=== PATIENT | male | born 1930 | race Caucasian/White ===

== ENCOUNTER 2016-10-14 20:15 | Emergency (ER) | payer OTHER ==
[~2016-10-14] VITALS: Ht 175.3 cm; Wt 81.0 kg
[~2016-10-14 20:15] MED LIST: ALUMCHW6 PO; APR25 PO; IMDSR30 PO; PRLSR20 PO
[2016-10-14 20:23] VITALS: TEMP 36.7; Ht 175.3 cm; Wt 81.0 kg
[2016-10-14] MEDS ORDERED: ONDANSETRON INJ 2 MG/ML 2 ML VIAL IV STA (20:25)
[2016-10-14] MEDS ORDERED: MECLIZINE HCL 25 MG TAB PO STA (20:25)
[2016-10-14 20:37] VITALS: O2SAT 100
[2016-10-14 20:45] LABS: BASO % 0.2 %; BASO ABS # 0.02 K/uL (0-0.2); COMPLETE YES; EOS % 0.5 %; IG% 0.4 %; LYMPH % 38.1 %; LYMPH ABS # 3.94 K/uL (1.2-3.4); MEAN CELL VOLUME 89.3 fL (80-100); MEAN CORPUSCULAR HGB CONC 34.8 g/dl (32-36); MEAN PLATELET VOLUME 9.4 fL (7.4-10.4); NEUT % 54.8 %; PLATELET COUNT 323 K/uL (130-400); RED BLOOD COUNT 4.48 M/uL (4.7-6.1); WHITE BLOOD COUNT 10.35 K/uL (4.8-10.8)
[2016-10-14 20:53] LABS: PARTIAL THROMBOPLASTIN RATIO 1.1
--- NOTE | 2016-10-14 20:59 | DIAGNOSTIC IMAGING REPORT ---
CHEST ONE VIEW PORTABLE CLINICAL HISTORY: Altered mental status. Weakness. COMPARISON STUDY: 12/01/2015 FINDINGS: The heart is mildly enlarged. There is no overt failure. There are no pleural effusions. There is no lobar consolidation. There are subsegmental atelectatic changes at the left lung base.[ IMPRESSION: Mild cardiomegaly. Left basilar atelectasis. No evidence of failure. Electronically signed by: Brant Toledo M.D. 10/14/2016 8:58 PM Dictated Date/Time: 10/14/2016 8:57 PM
--- NOTE | 2016-10-14 21:16 | DIAGNOSTIC IMAGING REPORT ---
CT HEAD WITHOUT CONTRAST (CT) CLINICAL HISTORY: Altered mental status. Weakness. COMPARISON STUDY: 12/01/2015 TECHNIQUE: Axial CT of the brain is performed from the vertex to the skull base. IV contrast was not administered for this examination. CT DOSE: 773.57 mGy.cm FINDINGS: No intra or extra-axial mass lesions are visualized. There is no CT evidence of acute cortical infarction. There is no evidence of midline shift. There is no acute hemorrhage. No calvarial fractures are visualized. There are patchy white matter hypodensities likely on a small vessel basis. There is no evidence of pathologic ventricular dilatation. There is a right maxillary sinus air-fluid level. Clinical correlation in regards to acute sinusitis is recommended IMPRESSION: 1. Right maxillary sinus air-fluid level, possibly representing acute sinusitis. Otherwise no acute intracranial findings. Electronically signed by: Brant Toledo M.D. 10/14/2016 9:14 PM Dictated Date/Time: 10/14/2016 9:12 PM
[2016-10-14 21:17] LABS: ALT/SGPT 29 U/L (12-78); BLOOD UREA NITROGEN 14 mg/dl (7-18); BUN/CREATININE RATIO 12.5 (10-20); CALCIUM 9.1 mg/dl (8.5-10.1); CARBON DIOXIDE 32 mmol/L (21-32); CHLORIDE 98 mmol/L (98-107); GLUCOSE 156 mg/dl (70-99); MAGNESIUM 1.9 mg/dl (1.8-2.4); POTASSIUM 3.6 mmol/L (3.5-5.1); SODIUM 136 mmol/L (136-145)
[2016-10-14 21:26] LABS: ALKALINE PHOSPHATASE 104 U/L (45-117); AST/SGOT 29 U/L (15-37); CKMB/CK RATIO 2.6 (0-3.0)
[2016-10-14] MEDS ORDERED: AMLODIPINE BESYLATE 5 MG TAB PO ONE (21:45)
[2016-10-14 22:47] LABS: URINE APPEARANCE CLEAR (CLEAR); URINE BILIRUBIN NEG (NEG); URINE COLOR YELLOW; URINE NITRITE NEG (NEG); URINE PH 7.5 (4.5-7.5); UROBILINOGEN NEG (NEG)
[2016-10-14] MEDS ORDERED: MECL1TAB42 PO (22:59)
[2016-10-14 23:14] LABS: MANUAL MICROSCOPIC REQUIRED? NO; REVIEW REQ? NO
[2016-10-14 23:57] VITALS: BP 191/110; PULSE 85; O2SAT 93
--- NOTE | 2016-10-15 15:38 | EMERGENCY ROOM VISIT NOTE ---
History Report prepared by Calvin: Marysol Hector Under the Supervision of: Dr. Edwin Aldana D.O. First contact with patient: 20:17 Chief Complaint: HYPERTENSION Stated Complaint: HTN, Dizzy/Nausea History of Present Illness The patient is an 86 year old male who presents to the Emergency Room via EMS with complaints of persistent dizziness and nausea with onset this evening. Along with these symptoms, the patient has been hypertensive. Per EMS, the patient's grandson called as the patient had a headache. They noticed that the patient's symptoms were concerning for carbon monoxide poisoning as the patient' s grandson also had similar symptoms. The forest fire lookout read a CO reading of 20-23 pmg in the patient's house. EMS notes that the patient had intermittent PVCs and that he vomited en route to the hospital. The patient denies current headache. The patient remains nauseous. The patient notes that he has a history of vertigo and tinnitus. He states that he took his medications today. Source of History: patient Onset: this evening Position: other (global ) Quality: other (nausea, dizziness) Timing: other (persistent) Associated Symptoms: + headache, + nausea, + vomiting Review of Systems See HPI for pertinent positives & negatives. A total of 10 systems reviewed and were otherwise negative. Past Medical & Surgical Medical Problems: (1) Diabetes mellitus type 2 in nonobese (2) Dyslipidemia (3) GERD (gastroesophageal reflux disease) (4) Hearing loss (5) Hypertension Surgical Problems: (1) No significant past surgical history Family History Hypertension Kidney disease Kidney stones Social History Smoking Status: Never Smoker Alcohol Use: none Drug Use: none Housing Status: lives alone Occupation Status: retired Current/Historical Medications Scheduled Amlodipine Besylate (Norvasc), 10 MG PO DAILY Atenolol (Tenormin), 100 MG PO DAILY Atorvastatin (Lipitor), 20 MG PO DAILY Calcium/Vitamin D ([place] 500 Plus D), 1 TAB PO DAILY Hydralazine Hcl (Apresoline), 25 MG PO BID Isosorbide Mononitrate (Isosorbide Mononitrate ER), 30 MG PO QAM Omeprazole (Prilosec), 20 MG PO DAILY Scheduled PRN Aluminum Hydroxide-Mag Carb (Gaviscon Extra Strength), 2 TAB PO TID PRN for Dyspepsia Meclizine Hcl (Meclizine Hcl), 25 MG PO TID PRN for Dizziness Meclizine Hcl (Meclizine Hcl), 1 TAB PO TID PRN for Dizziness or Vertigo Allergies Coded Allergies: Penicillins (Verified Allergy, Unknown, unknown, 10/14/16) Physical Exam Vital Signs Date Time Temp Pulse Resp B/P Pulse Ox O2 Delivery O2 Flow Rate FiO2 10/14/16 23:57 85 18 191/110 93 Room Air 10/14/16 23:35 91 18 186/98 98 Room Air 10/14/16 22:45 87 18 95 Room Air 10/14/16 21:22 78 18 219/106 100 Non-Rebreather 15.0 10/14/16 21:01 85 20 221/99 100 Non-Rebreather 15.0 10/14/16 20:45 78 18 190/94 100 Non-Rebreather 15.0 80 211/99 87 202/94 10/14/16 20:37 100 Non-Rebreather 15.0 10/14/16 20:31 77 10/14/16 20:23 36.7 83 18 218/97 99 Room Air 10/14/16 20:23 99 Room Air Physical Exam GENERAL: Patient is awake alert in no acute distress patient is resting comfortably and showing no signs of anxiety EYES: The conjunctivae are clear. The pupils are round and reactive. EARS, NOSE, MOUTH AND THROAT: The nose is without any evidence of any deformity. Mucous membranes are moist tongue is midline NECK: The neck is nontender and supple. RESPIRATORY: Normal respiratory effort is noted there is no evidence of wheezing rhonchi or rales CARDIOVASCULAR: Regular rate and rhythm noted there no murmurs rubs or gallops normal S1 normal S2 GASTROINTESTINAL: The abdomen is soft. Bowel sounds are present in all quadrants. Abdomen is nontender MUSCULOSKELETAL/EXTREMITIES: There is no evidence of gross deformity full range of motion is noted in the hips and shoulders SKIN: There is no obvious evidence of any rash. There are no petechiae, pallor or cyanosis noted. NEUROLOGIC: Patient is awake alert and oriented x3 strength is symmetric, no drift, no facial droop was noted, no nystagmus was noted. Medical Decision & Procedures ER Provider Diagnostic Interpretation: CT results as stated below per my review and radiologist interpretation. CT HEAD WITHOUT CONTRAST (CT) CLINICAL HISTORY: Altered mental status. Weakness. COMPARISON STUDY: 12/01/2015 TECHNIQUE: Axial CT of the brain is performed from the vertex to the skull base. IV contrast was not administered for this examination. CT DOSE: 773.57 mGy.cm FINDINGS: No intra or extra-axial mass lesions are visualized. There is no CT evidence of acute cortical infarction. There is no evidence of midline shift. There is no acute hemorrhage. No calvarial fractures are visualized. There are patchy white matter hypodensities likely on a small vessel basis. There is no evidence of pathologic ventricular dilatation. There is a right maxillary sinus air-fluid level. Clinical correlation in regards to acute sinusitis is recommended IMPRESSION: 1. Right maxillary sinus air-fluid level, possibly representing acute sinusitis. Otherwise no acute intracranial findings. Electronically signed by: Brant Toledo M.D. 10/14/2016 9:14 PM Dictated Date/Time: 10/14/2016 9:12 PM CHEST ONE VIEW PORTABLE CLINICAL HISTORY: Altered mental status. Weakness. COMPARISON STUDY: 12/01/2015 FINDINGS: The heart is mildly enlarged. There is no overt failure. There are no pleural effusions. There is no lobar consolidation. There are subsegmental atelectatic changes at the left lung base.[ IMPRESSION: Mild cardiomegaly. Left basilar atelectasis. No evidence of failure. Electronically signed by: Brant Toledo M.D. 10/14/2016 8:58 PM Dictated Date/Time: 10/14/2016 8:57 PM Laboratory Results 10/14/16 20:00 Red Blood Count 4.48, Mean Corpuscular Volume 89.3, Mean Corpuscular Hemoglobin 31.0, Mean Corpuscular Hemoglobin Concent 34.8, Mean Platelet Volume 9.4, Neutrophils (%) (Auto) 54.8, Lymphocytes (%) (Auto) 38.1, Monocytes (%) (Auto) 6.0, Eosinophils (%) (Auto) 0.5, Basophils (%) (Auto) 0.2, Neutrophils # (Auto) 5.68, Lymphocytes # (Auto) 3.94, Monocytes # (Auto) 0.62, Eosinophils # (Auto) 0.05, Basophils # (Auto) 0.02 10/14/16 20:00 Test 10/14/16 20:00 2/25/17 20:33 10/14/16 20:41 10/14/16 22:00 White Blood Count 10.35 K/uL (4.8-10.8) Red Blood Count 4.48 M/uL (4.7-6.1) Hemoglobin 13.9 g/dL (14.0-18.0) Hematocrit 40.0 % (42-52) Mean Corpuscular Volume 89.3 fL (80-100) Mean Corpuscular Hemoglobin 31.0 pg (25-34) Mean Corpuscular Hemoglobin Concent 34.8 g/dl (32-36) Platelet Count 323 K/uL (130-400) Mean Platelet Volume 9.4 fL (7.4-10.4) Neutrophils (%) (Auto) 54.8 % Lymphocytes (%) (Auto) 38.1 % Monocytes (%) (Auto) 6.0 % Eosinophils (%) (Auto) 0.5 % Basophils (%) (Auto) 0.2 % Neutrophils # (Auto) 5.68 K/uL (1.4-6.5) Lymphocytes # (Auto) 3.94 K/uL (1.2-3.4) Monocytes # (Auto) 0.62 K/uL (0.11-0.59) Eosinophils # (Auto) 0.05 K/uL (0-0.5) Basophils # (Auto) 0.02 K/uL (0-0.2) RDW Standard Deviation 46.9 fL (36.4-46.3) RDW Coefficient of Variation 14.3 % (11.5-14.5) Immature Granulocyte % (Auto) 0.4 % Immature Granulocyte # (Auto) 0.04 K/uL (0.00-0.02) Prothrombin Time 11.0 SECONDS (9.0-12.0) Prothromb Time International Ratio 1.0 (0.9-1.1) Activated Partial Thromboplast Time 29.1 SECONDS (21.0-31.0) Partial Thromboplastin Ratio 1.1 Anion Gap 6.0 mmol/L (3-11) Est Creatinine Clear Calc Drug Dose 48.2 ml/min Estimated GFR () 70.1 Estimated GFR (Non- 60.5 BUN/Creatinine Ratio 12.5 (10-20) Calcium Level 9.1 mg/dl (8.5-10.1) Magnesium Level 1.9 mg/dl (1.8-2.4) Total Bilirubin 0.4 mg/dl (0.2-1) Direct Bilirubin 0.1 mg/dl (0-0.2) Aspartate Amino Transf (AST/SGOT) 29 U/L (15-37) Alanine Aminotransferase (ALT/SGPT) 29 U/L (12-78) Alkaline Phosphatase 104 U/L (45-117) Total Creatine Kinase 62 U/L (39-308) Creatine Kinase MB 1.6 ng/ml (0.5-3.6) Creatine Kinase MB Ratio 2.6 (0-3.0) Troponin I < 0.015 ng/ml (0-0.045) Total Protein 8.1 gm/dl (6.4-8.2) Albumin 4.0 gm/dl (3.4-5.0) Lipase 156 U/L (73-393) Thyroid Stimulating Hormone (TSH) 3.340 uIu/ml (0.300-4.500) Bedside Glucose 165 mg/dl (70-99) Carboxyhemoglobin 0.0 % THgb Urine Color YELLOW Urine Appearance CLEAR (CLEAR) Urine pH 7.5 (4.5-7.5) Urine Specific [place] 1.010 (1.000-1.030) Urine Protein NEG (NEG) Urine Glucose (UA) TRACE (NEG) Urine Ketones NEG (NEG) Urine Occult Blood NEG (NEG) Urine Nitrite NEG (NEG) Urine Bilirubin NEG (NEG) Urine Urobilinogen NEG (NEG) Urine Leukocyte Esterase NEG (NEG) Laboratory results per my review. Medications Administered Medications (Trade) Dose Ordered Sig/Florentin Route Start Time Stop Time Status Last Admin Dose Admin Ondansetron HCl (Zofran Inj) 4 mg NOW STAT IV 10/14/16 20:25 10/14/16 20:28 DC 10/14/16 20:35 4 MG Meclizine HCl (Antivert Tab) 25 mg NOW STAT PO 10/14/16 20:25 10/14/16 20:28 DC 10/14/16 20:35 25 MG Hydralazine HCl (Apresoline Tab) 25 mg NOW STAT PO 10/14/16 20:28 10/14/16 20:29 DC 10/14/16 20:35 25 MG Amlodipine Besylate (Norvasc Tab) 10 mg NOW ONCE PO 10/14/16 21:45 10/14/16 21:46 DC 10/14/16 21:43 10 MG ECG Indication: nausea Rate (beats per minute): 80 Rhythm: sinus rhythm Findings: 1st degree AV block, no ectopy, other (no acute ST segment abnormalities ) Comparison ECG Date: December 01, 2015 Change: no significant change ED Course 2019: The patient was evaluated in room A10. A complete history and physical examination were performed. 2024: Antivert Tab 25 mg PO, Zofran 4 mg IV 2027: Hydralazine HCl 25 mg PO 2131: I reevaluated the patient; he is feeling better. 2144: Norvasc Tab 10 mg PO 2254: Upon reevaluation, the patient is doing well. I discussed the results and treatment plan with the patient. He verbalized agreement of the treatment plan. The patient was discharged home. Medical Decision Differential diagnosis: Etiologies such as benign positional vertigo, dehydration, hypovolemia, anemia, tumor, infection, hypoglycemia, electrolyte abnormalities, cardiac sources, intracerebral event, toxicologic, neurologic, as well as others were entertained. Nursing notes reviewed. Additional history is obtained from the patient's family members. The patient is an 86-year-old male who presented to the emergency department for an evaluation of vertigo. The patient also had hypertension. He has a history of chronic hypertension and from his description I do not feel that he is being compliant with his medications. I reviewed the patient's medication regimen with him as well as his family members. He was treated with meclizine as well as his blood pressure medication while he was in the emergency department. He continued to have elevated blood pressure readings in the emergency department. Some of the documented blood pressures I do not feel are correct I feel they are spurious because they are not consistent with the patient's pattern but I discussed this with the nursing staff and they included them in the documentation. They were reviewed. The patient was encouraged to review his medications with his doctor as well as his family. I gave his son a printout of his current blood pressure medication. They were encouraged to ensure that he is taking all his medications as prescribed and rest. He was encouraged to follow-up with his family doctor as soon as possible for reevaluation and for blood pressure check. He was also encouraged to return to the emergency department for further evaluation but return immediately if symptoms change worsen or the need arises. Impression Primary Impression: Vertigo Additional Impressions: Hypertension Noncompliance with medications Scribe Attestation The scribe's documentation has been prepared under my direction and personally reviewed by me in its entirety. I confirm that the note above accurately reflects all work, treatment, procedures, and medical decision making performed by me. Departure Information Dispostion Home / Self-Care Prescriptions Meclizine Hcl (MECLIZINE HCL) 25 Mg Tab 1 TAB PO TID Y for Dizziness or Vertigo for 10 Days, #30 TAB Prov: Edwin Aldana, DO 10/14/16 Referrals Asael Damian MD (PCP) Forms HOME CARE DOCUMENTATION FORM, IMPORTANT VISIT INFORMATION, WORK / SCHOOL INSTRUCTIONS Patient Instructions ED Vertigo Unspecified, Hypertension Control, My [facility] Additional Instructions Continue all medications as prescribed. Rest and avoid any strenuous activity. Follow-up with your family as soon as possible for reevaluation. Recheck your blood pressure with your family this week. Problem Qualifiers Additional Impressions: Hypertension Hypertension type: essential hypertension Qualified Codes: I10 - Essential ( primary) hypertension
[2017-01-30] MEDS ORDERED: GLC/500 PO (10:16)
[2017-01-30] MEDS ORDERED: ATEN-175 PO (13:28)
[2017-01-30] MEDS ORDERED: AMLO10TA2 PO (13:28)
[2017-01-30] MEDS ORDERED: ATOR-22 PO (13:28)
[2017-01-30] MEDS ORDERED: MECL1TAB42 PO (17:21)
== END 2016-10-15 | disposition home or self-care (01) ==
LOC: EDBD 20:15 → C.EDA 20:16
DX: R42 Dizziness and giddiness (principal); I10 Essential (primary) hypertension; Z91.19 Patient's noncompliance with other medical treatment and regimen; E11.9 Type 2 diabetes mellitus without complications; E78.5 Hyperlipidemia, unspecified; K21.9 Gastro-esophageal reflux disease without esophagitis

== ENCOUNTER 2016-12-12 08:41 | Emergency (ER) | payer OTHER ==
[~2016-12-12] VITALS: Ht 177.8 cm; Wt 81.9 kg
[2016-12-12 08:50] VITALS: TEMP 36.8; Ht 177.8 cm; Wt 81.9 kg
[2016-12-12] MEDS ORDERED: SODIUM CHLORIDE 0.9% 500ML 500 ML IV STA (09:01)
[2016-12-12] MEDS ORDERED: MECLIZINE HCL 25 MG TAB PO STA (09:01)
[2016-12-12] MEDS ORDERED: ONDANSETRON INJ 2 MG/ML 2 ML VIAL IV STA (09:01)
[2016-12-12] MEDS ORDERED: DIAZEPAM INJ 5 MG/ML 2 ML CARP IV STA (09:01)
[2016-12-12 09:21] VITALS: O2SAT 93
--- NOTE | 2016-12-12 09:35 | EMERGENCY ROOM VISIT NOTE ---
History Report prepared by Calvin: La Rodriguez Under the Supervision of: Dr. Georgi Banegas M.D. First contact with patient: 08:56 Chief Complaint: VERTIGO Stated Complaint: VERTIGO History of Present Illness The patient is an 86 year old male who presents to the Emergency Room with complaints of persistent dizziness that began prior to arrival. Per nursing staff, the patient has a history of vertigo. They note that the patient became dizzy this morning and crawled to the bathroom because he could not walk. Nursing staff reports that the patient vomited twice and has not had his morning medications due to the nausea. Nursing staff reports that the patient lives at home. Source of History: patient, nursing staff Onset: prior to arrival Position: other (global) Quality: other (dizziness) Timing: other (persistent) Associated Symptoms: + nausea, + vomiting Note: Associated Symptoms: could not walk Review of Systems See HPI for pertinent positives & negatives. A total of 10 systems reviewed and were otherwise negative. Past Medical & Surgical Medical Problems: (1) Diabetes mellitus type 2 in nonobese (2) Dyslipidemia (3) GERD (gastroesophageal reflux disease) (4) Hearing loss (5) Hypertension Surgical Problems: (1) No significant past surgical history Family History Hypertension Kidney disease Kidney stones Social History Smoking Status: Former Smoker Alcohol Use: none Drug Use: none Housing Status: lives alone Occupation Status: retired Current/Historical Medications Scheduled Amlodipine Besylate (Norvasc), 10 MG PO DAILY Atenolol (Tenormin), 100 MG PO DAILY Atorvastatin (Lipitor), 20 MG PO DAILY Calcium/Vitamin D ([place] 500 Plus D), 1 TAB PO DAILY Hydralazine Hcl (Apresoline), 25 MG PO BID Isosorbide Mononitrate (Isosorbide Mononitrate ER), 30 MG PO QAM Metformin Hcl (Glucophage), 500 MG PO BIDM Metformin Hcl (Glucophage), 1 TAB PO BID Omeprazole (Prilosec), 20 MG PO DAILY Omeprazole (Omeprazole), 1 TAB PO DAILY Scheduled PRN Aluminum Hydroxide-Mag Carb (Gaviscon Extra Strength), 2 TAB PO TID PRN for Dyspepsia Meclizine Hcl (Meclizine Hcl), 25 MG PO TID PRN for Dizziness Meclizine Hcl (Meclizine Hcl), 1 TAB PO TID PRN for Dizziness or Vertigo Allergies Coded Allergies: Penicillins (Verified Allergy, Unknown, unknown, 12/12/16) Physical Exam Vital Signs Date Time Temp Pulse Resp B/P Pulse Ox O2 Delivery O2 Flow Rate FiO2 12/12/16 10:46 75 15 95 12/12/16 10:31 137/63 12/12/16 10:27 125/97 12/12/16 10:16 74 15 92 12/12/16 10:11 74 18 93 12/12/16 10:00 125/97 12/12/16 09:55 175/81 12/12/16 09:53 192/93 12/12/16 09:52 180/94 12/12/16 09:51 80 180/94 84 192/93 85 175/81 12/12/16 09:21 93 Room Air 12/12/16 09:21 93 Room Air 12/12/16 09:11 76 18 95 12/12/16 09:00 166/77 12/12/16 08:58 80 12/12/16 08:50 36.8 78 18 182/84 95 Room Air 12/12/16 08:46 182/84 Physical Exam GENERAL: Patient is hard of hearing, healthy-appearing well-nourished HEAD: Normocephalic atraumatic EYES: Ocular movements intact pupils equal and react to light OROPHARYNX mucous membranes are moist no exudates present no erythema or edema present NECK: Supple no nuchal rigidity CHEST: Good equal expansion LUNGS: Clear and equal to auscultation CARDIAC: Normal S1 and S2 ABDOMEN: Soft nontender no guarding BACK: No CVA tenderness EXTREMITIES: No pain upon palpation normal muscle strength in all groups no clubbing cyanosis or edema NEURO: Patient is following commands is answering questions appropriately. Alert and oriented x3 Cranial Nerves 2-12 grossly intact Medical Decision & Procedures ER Provider Diagnostic Interpretation: CT results as stated below per my review and radiologist interpretation: HEAD CT NONCONTRAST CT DOSE: 537.48 mGy.cm HISTORY: Altered mental status. TECHNIQUE: Multiaxial CT images of the head were performed without the use of intravenous contrast. Automated exposure control was utilized for this study. Comparison: Head CT 10/14/2016. Findings: The paranasal sinuses and mastoid air cells are clear. The calvarium and skull base are intact. There is no mass, hematoma, midline shift, acute infarct. White matter hypodensity is nonspecific but suggestive of microvascular ischemic change. The ventricles and sulci demonstrate mild age-related involutional changes. Impression: No acute intracranial abnormality. Atrophy and microvascular ischemic changes. Electronically signed by: Ken Villela M.D. 12/12/2016 9:50 AM Dictated Date/Time: 12/12/2016 9:[address] SCAN OF THE ABDOMEN AND PELVIS WITHOUT IV CONTRAST CLINICAL HISTORY: Emesis. COMPARISON STUDY: Abdominal CT dated 11/21/2015. TECHNIQUE: CT scan of the abdomen and pelvis is performed from the lung bases to the proximal femora. Images are reviewed in the axial, sagittal, and coronal planes. IV contrast was not administered for this examination as per the referring clinician. Note that the examination was performed in significantly suboptimal fashion without oral and IV contrast. The examination is also degraded by motion artifact as well as streak artifact from the arms which could not be elevated above the abdomen. Automated dose control exposure was utilized. CT DOSE: 792.09 mGy.cm FINDINGS: Lung bases: The heart is enlarged and without pericardial effusion. The lung bases are clear. There is a tiny hiatal hernia. Liver: Evaluation of the liver is degraded by streak artifact. The unenhanced liver appears normal in size, contour, and attenuation. There is no intrahepatic biliary ductal dilatation. Gallbladder: Unremarkable. Spleen: Normal in size and attenuation. Pancreas: The unenhanced pancreas is moderately atrophic and grossly unremarkable. Adrenal glands: Unremarkable. Kidneys: The unenhanced kidneys are atrophic and without hydronephrosis. There are no renal calculi identified. There is no evidence of contour deforming renal mass lesion. Abdominal vasculature: The abdominal aorta is normal in course and caliber noting moderate to advanced atherosclerotic calcification. Bowel: The small bowel and colon are normal in course and caliber. There is moderate sigmoid diverticulosis without CT evidence of acute diverticulitis. The appendix is well-visualized and normal. Peritoneum: There is no intraperitoneal free air or abdominal ascites. Lymphadenopathy: None. Pelvic viscera: The prostate gland is diminutive and heterogeneous. The bladder is distended and the wall appears trabeculated suggesting chronic outlet obstruction. Skeletal structures: The skeletal structures are osteopenic. There is moderate to advanced lumbosacral spondylosis. No lytic or blastic lesions are seen. IMPRESSION: 1. Significantly suboptimal examination without oral and IV contrast. The examination is also degraded by streak and motion artifact. 2. There are no acute infectious or inflammatory findings in the abdomen or pelvis. 3. Cardiomegaly. 4. Moderate sigmoid diverticulosis without CT evidence of acute diverticulosis. 5. Additional findings as above. Electronically signed by: Esvin Heath M.D. 12/12/2016 9:59 AM Dictated Date/Time: 12/12/2016 9:53 AM Laboratory Results 12/12/16 09:21 Red Blood Count 4.38, Mean Corpuscular Volume 91.3, Mean Corpuscular Hemoglobin 30.6, Mean Corpuscular Hemoglobin Concent 33.5, Mean Platelet Volume 9.4, Neutrophils (%) (Auto) 82.3, Lymphocytes (%) (Auto) 12.3, Monocytes (%) (Auto) 4.6, Eosinophils (%) (Auto) 0.2, Basophils (%) (Auto) 0.3, Neutrophils # (Auto) 9.44, Lymphocytes # (Auto) 1.41, Monocytes # (Auto) 0.53, Eosinophils # (Auto) 0.02, Basophils # (Auto) 0.03 12/12/16 09:21 Test 12/12/16 09:00 12/12/16 09:21 12/12/16 09:29 12/12/16 10:00 Bedside Glucose 203 mg/dl (70-99) White Blood Count 11.47 K/uL (4.8-10.8) Red Blood Count 4.38 M/uL (4.7-6.1) Hemoglobin 13.4 g/dL (14.0-18.0) Hematocrit 40.0 % (42-52) Mean Corpuscular Volume 91.3 fL (80-100) Mean Corpuscular Hemoglobin 30.6 pg (25-34) Mean Corpuscular Hemoglobin Concent 33.5 g/dl (32-36) Platelet Count 242 K/uL (130-400) Mean Platelet Volume 9.4 fL (7.4-10.4) Neutrophils (%) (Auto) 82.3 % Lymphocytes (%) (Auto) 12.3 % Monocytes (%) (Auto) 4.6 % Eosinophils (%) (Auto) 0.2 % Basophils (%) (Auto) 0.3 % Neutrophils # (Auto) 9.44 K/uL (1.4-6.5) Lymphocytes # (Auto) 1.41 K/uL (1.2-3.4) Monocytes # (Auto) 0.53 K/uL (0.11-0.59) Eosinophils # (Auto) 0.02 K/uL (0-0.5) Basophils # (Auto) 0.03 K/uL (0-0.2) RDW Standard Deviation 48.0 fL (36.4-46.3) RDW Coefficient of Variation 14.5 % (11.5-14.5) Immature Granulocyte % (Auto) 0.3 % Immature Granulocyte # (Auto) 0.04 K/uL (0.00-0.02) Est Creatinine Clear Calc Drug Dose 45.6 ml/min Estimated GFR () 63.1 Estimated GFR (Non- 54.4 BUN/Creatinine Ratio 10.4 (10-20) Calcium Level 9.3 mg/dl (8.5-10.1) Total Bilirubin 0.5 mg/dl (0.2-1) Direct Bilirubin 0.1 mg/dl (0-0.2) Aspartate Amino Transf (AST/SGOT) 19 U/L (15-37) Alanine Aminotransferase (ALT/SGPT) 29 U/L (12-78) Alkaline Phosphatase 93 U/L (45-117) Total Creatine Kinase 61 U/L (39-308) Creatine Kinase MB 1.0 ng/ml (0.5-3.6) Creatine Kinase MB Ratio 1.6 (0-3.0) Troponin I < 0.015 ng/ml (0-0.045) Total Protein 8.1 gm/dl (6.4-8.2) Albumin 4.0 gm/dl (3.4-5.0) Thyroid Stimulating Hormone (TSH) 3.400 uIu/ml (0.300-4.500) Bedside Hemoglobin 14.3 g/dl (14.0-18.0) Bedside Hematocrit 42 % (42-52) Bedside Sodium 140 mEq/L (135-144) Bedside Potassium 4.5 mEq/L (3.3-5.0) Bedside Chloride 100 mEq/L (101-112) Bedside Total CO2 28 mEq/l (24-31) Anion Gap 18.0 mmol/L (16-25) Bedside Blood Urea Nitrogen 16 mg/dl (7-18) Bedside Creatinine 1.0 mg/dl (0.6-1.3) Bedside Glucose (other) 220 mg/dl (70-99) Bedside Ionized Calcium ([place]) 1.12 mmol/l (1.12-1.32) Urine Color YELLOW Urine Appearance CLEAR (CLEAR) Urine pH 8.5 (4.5-7.5) Urine Specific [place] 1.012 (1.000-1.030) Urine Protein NEG (NEG) Urine Glucose (UA) 2+ (NEG) Urine Ketones NEG (NEG) Urine Occult Blood NEG (NEG) Urine Nitrite NEG (NEG) Urine Bilirubin NEG (NEG) Urine Urobilinogen NEG (NEG) Urine Leukocyte Esterase NEG (NEG) Labs reviewed by ED physician. Medications Administered Medications (Trade) Dose Ordered Sig/Florentin Route Start Time Stop Time Status Last Admin Dose Admin Diazepam (Valium Inj) 2.5 mg NOW STAT IV 12/12/16 09:01 12/12/16 09:04 DC 12/12/16 10:06 2.5 MG Ondansetron HCl (Zofran Inj) 4 mg NOW STAT IV 12/12/16 09:01 12/12/16 09:04 DC 12/12/16 10:05 4 MG Meclizine HCl 25 mg 25 mg NOW STAT PO 12/12/16 09:01 12/12/16 09:05 DC 12/12/16 10:04 25 MG Sodium Chloride (Nss 500ml) 500 ml @ 999 mls/hr Q31M STAT IV 12/12/16 09:01 12/12/16 09:31 DC 12/12/16 10:04 999 MLS/HR ECG Indication: other (dizziness) Rate (beats per minute): 75 Rhythm: normal sinus Findings: 1st degree AV block, no acute ischemic change, no ectopy ED Course 0856: Past medical records reviewed. The patient was evaluated in room B11B. A complete history and physical examination was performed. 0901: Ordered Sodium Chloride 500 ml @ 999 mls/hr IV, Antivert Tab 25 mg PO, Zofran Inj 4 mg IV, Valium Inj 2.5 mg IV. 1044: I reevaluated the patient and he is resting comfortably. I discussed the exam findings with him and I discussed the treatment plan. He verbalized complete understanding and agreement. He is going to have an ambulation trial. 1058: According to nursing staff, the patients ambulation trial went well. He is ready to go home. Medical Decision Differential diagnosis: Etiologies such as metabolic, infection, hypo/hyperglycemia, electrolyte abnormalities, cardiac sources, intracerebral event, toxicologic, neurologic, as well as others were entertained. This is an 86-year-old male who presents emergency department because he is out of his meclizine medication. The patient has a history of vertigo and reports he is currently having vertigo. He was sent for CAT scan of the head however this did not show any acute process. He was given Valium as well as meclizine here in the emergency department. Repeat examination revealed improvement in the patient's symptoms. He was ambulated by nursing staff both to the bathroom as well as around the emergency department without any distress. I feel the patient is well enough to be discharged home. He was given refills on his current medications however stressed the need for follow-up with his primary care physician. Patient and family were in agreement with the treatment plan. Impression Primary Impression: Vertigo Scribe Attestation The scribe's documentation has been prepared under my direction and personally reviewed by me in its entirety. I confirm that the note above accurately reflects all work, treatment, procedures, and medical decision making performed by me. Departure Information Dispostion Home / Self-Care Prescriptions Meclizine Hcl (MECLIZINE HCL) 25 Mg Tab 1 TAB PO TID Y for Dizziness or Vertigo for 10 Days, #30 TAB Prov: Georgi Banegas MD 12/12/16 Omeprazole (OMEPRAZOLE) 20 Mg Tab 1 TAB PO DAILY for 10 Days, #10 TAB 1 Refill Prov: Georgi Banegas MD 12/12/16 Metformin Hcl (GLUCOPHAGE) 500 Mg Tab 1 TAB PO BID for 10 Days, #20 TAB 1 Refill Prov: Georgi Banegas MD 12/12/16 Referrals Asael Damian MD (PCP) Forms HOME CARE DOCUMENTATION FORM, IMPORTANT VISIT INFORMATION, WORK / SCHOOL INSTRUCTIONS Patient Instructions ED Vertigo Unspecified, My [facility] Additional Instructions You have been examined and treated today on an emergency basis only. This is not a substitute for, or an effort to provide, complete comprehensive medical care. It is impossible to recognize and treat all injuries or illnesses in a single emergency department visit. It is therefore important that you follow up closely with Dr Damian. Call as soon as possible for an appointment. Thank you for your time and consideration. I look forward to speaking with you again soon. Please don't hesitate to call us if you have any questions.
[2016-12-12 09:43] LABS: BASO % 0.3 %; BASO ABS # 0.03 K/uL (0-0.2); COMPLETE YES; EOS % 0.2 %; IG% 0.3 %; LYMPH % 12.3 %; LYMPH ABS # 1.41 K/uL (1.2-3.4); MEAN CELL VOLUME 91.3 fL (80-100); MEAN CORPUSCULAR HEMOGLOBIN 30.6 pg (25-34); MEAN CORPUSCULAR HGB CONC 33.5 g/dl (32-36); MEAN PLATELET VOLUME 9.4 fL (7.4-10.4); MONO % 4.6 %; NEUT % 82.3 %; PLATELET COUNT 242 K/uL (130-400); RED BLOOD COUNT 4.38 M/uL (4.7-6.1); WHITE BLOOD COUNT 11.47 K/uL (4.8-10.8)
[2016-12-12 09:47] LABS: ISTAT HEMOGLOBIN 14.3 g/dl (14.0-18.0); ISTAT IONIZED CALCIUM 1.12 mmol/l (1.12-1.32)
--- NOTE | 2016-12-12 09:52 | DIAGNOSTIC IMAGING REPORT ---
HEAD CT NONCONTRAST CT DOSE: 537.48 mGy.cm HISTORY: Altered mental status. TECHNIQUE: Multiaxial CT images of the head were performed without the use of intravenous contrast. Automated exposure control was utilized for this study. Comparison: Head CT 10/14/2016. Findings: The paranasal sinuses and mastoid air cells are clear. The calvarium and skull base are intact. There is no mass, hematoma, midline shift, acute infarct. White matter hypodensity is nonspecific but suggestive of microvascular ischemic change. The ventricles and sulci demonstrate mild age-related involutional changes. Impression: No acute intracranial abnormality. Atrophy and microvascular ischemic changes. Electronically signed by: Ken Villela M.D. 12/12/2016 9:50 AM Dictated Date/Time: 12/12/2016 9:47 AM
[2016-12-12 10:01] LABS: CALCIUM 9.3 mg/dl (8.5-10.1)
--- NOTE | 2016-12-12 10:01 | DIAGNOSTIC IMAGING REPORT ---
CT SCAN OF THE ABDOMEN AND PELVIS WITHOUT IV CONTRAST CLINICAL HISTORY: Emesis. COMPARISON STUDY: Abdominal CT dated 11/21/2015. TECHNIQUE: CT scan of the abdomen and pelvis is performed from the lung bases to the proximal femora. Images are reviewed in the axial, sagittal, and coronal planes. IV contrast was not administered for this examination as per the referring clinician. Note that the examination was performed in significantly suboptimal fashion without oral and IV contrast. The examination is also degraded by motion artifact as well as streak artifact from the arms which could not be elevated above the abdomen. Automated dose control exposure was utilized. CT DOSE: 792.09 mGy.cm FINDINGS: Lung bases: The heart is enlarged and without pericardial effusion. The lung bases are clear. There is a tiny hiatal hernia. Liver: Evaluation of the liver is degraded by streak artifact. The unenhanced liver appears normal in size, contour, and attenuation. There is no intrahepatic biliary ductal dilatation. Gallbladder: Unremarkable. Spleen: Normal in size and attenuation. Pancreas: The unenhanced pancreas is moderately atrophic and grossly unremarkable. Adrenal glands: Unremarkable. Kidneys: The unenhanced kidneys are atrophic and without hydronephrosis. There are no renal calculi identified. There is no evidence of contour deforming renal mass lesion. Abdominal vasculature: The abdominal aorta is normal in course and caliber noting moderate to advanced atherosclerotic calcification. Bowel: The small bowel and colon are normal in course and caliber. There is moderate sigmoid diverticulosis without CT evidence of acute diverticulitis. The appendix is well-visualized and normal. Peritoneum: There is no intraperitoneal free air or abdominal ascites. Lymphadenopathy: None. Pelvic viscera: The prostate gland is diminutive and heterogeneous. The bladder is distended and the wall appears trabeculated suggesting chronic outlet obstruction. Skeletal structures: The skeletal structures are osteopenic. There is moderate to advanced lumbosacral spondylosis. No lytic or blastic lesions are seen. IMPRESSION: 1. Significantly suboptimal examination without oral and IV contrast. The examination is also degraded by streak and motion artifact. 2. There are no acute infectious or inflammatory findings in the abdomen or pelvis. 3. Cardiomegaly. 4. Moderate sigmoid diverticulosis without CT evidence of acute diverticulosis. 5. Additional findings as above. Electronically signed by: Esvin Heath M.D. 12/12/2016 9:59 AM Dictated Date/Time: 12/12/2016 9:53 AM
[2016-12-12 10:04] LABS: BLOOD UREA NITROGEN 13 mg/dl (7-18); BUN/CREATININE RATIO 10.4 (10-20); CARBON DIOXIDE 28 mmol/L (21-32); CHLORIDE 103 mmol/L (98-107); GLUCOSE 216 mg/dl (70-99); POTASSIUM 3.8 mmol/L (3.5-5.1); SODIUM 139 mmol/L (136-145)
[2016-12-12 10:14] LABS: ALKALINE PHOSPHATASE 93 U/L (45-117); ALT/SGPT 29 U/L (12-78); AST/SGOT 19 U/L (15-37); CKMB/CK RATIO 1.6 (0-3.0)
[2016-12-12 10:31] VITALS: BP 137/63
[2016-12-12 10:37] LABS: MANUAL MICROSCOPIC REQUIRED? NO; REVIEW REQ? NO; URINE APPEARANCE CLEAR (CLEAR); URINE BILIRUBIN NEG (NEG); URINE COLOR YELLOW; URINE NITRITE NEG (NEG); URINE PH 8.5 (4.5-7.5); URINE SPECIFIC GRAVITY 1.012 (1.000-1.030); UROBILINOGEN NEG (NEG)
[2016-12-12 10:46] VITALS: PULSE 75; O2SAT 95
[2016-12-12] MEDS ORDERED: OMEP20TA PO (11:00)
[2016-12-12] MEDS ORDERED: MECL1TAB42 PO (11:00)
[2016-12-12] MEDS ORDERED: METF500T PO (11:00)
[2017-01-30] MEDS ORDERED: GLC/500 PO (10:16)
[2017-01-30] MEDS ORDERED: AMLO10TA2 PO (13:28)
[2017-01-30] MEDS ORDERED: ATOR-22 PO (13:28)
[2017-01-30] MEDS ORDERED: ATEN-175 PO (13:28)
[2017-01-30] MEDS ORDERED: MECL1TAB42 PO (17:21)
== END 2016-12-12 11:59 | disposition home or self-care (01) ==
LOC: EDBD 08:41 → C.EDB 08:42
DX: R42 Dizziness and giddiness (principal); E11.9 Type 2 diabetes mellitus without complications; I10 Essential (primary) hypertension; H91.90 Unspecified hearing loss, unspecified ear; Z87.891 Personal history of nicotine dependence; Z79.899 Other long term (current) drug therapy

== ENCOUNTER 2017-01-30 19:22 | Emergency (ER) | payer OTHER ==
[~2017-01-30] VITALS: Ht 160 cm; Wt 82.5 kg
[~2017-01-30 19:22] MED LIST changes: +AMLO10TA2 PO; +ATEN-175 PO; +ATOR-22 PO; +GLC/500 PO; +MECL1TAB42 PO; +METF500T PO; +OMEP20TA PO
[2017-01-30 19:38] VITALS: TEMP 36.6; Ht 160 cm; Wt 82.5 kg
[2017-01-30] MEDS ORDERED: MECLIZINE HCL 25 MG TAB PO STA (19:51)
[2017-01-30] MEDS ORDERED: SODIUM CHLORIDE 0.9% 1000ML 1,000 ML IV STA (19:53)
[2017-01-30] MEDS ORDERED: SODIUM CHLORIDE 0.9% 1000ML 250 ML IV STA (19:53)
[2017-01-30] MEDS ORDERED: CALC500C70 PO (20:27)
[2017-01-30 20:37] LABS: BASO % 0.2 %; BASO ABS # 0.03 K/uL (0-0.2); COMPLETE YES; EOS % 0.2 %; HEMATOCRIT 39.7 % (42-52); IG% 0.2 %; LYMPH % 13.7 %; LYMPH ABS # 1.73 K/uL (1.2-3.4); MEAN CELL VOLUME 91.7 fL (80-100); MEAN CORPUSCULAR HEMOGLOBIN 31.6 pg (25-34); MEAN CORPUSCULAR HGB CONC 34.5 g/dl (32-36); MEAN PLATELET VOLUME 9.5 fL (7.4-10.4); MONO % 4.4 %; NEUT % 81.3 %; PLATELET COUNT 229 K/uL (130-400); RED BLOOD COUNT 4.33 M/uL (4.7-6.1); WHITE BLOOD COUNT 12.62 K/uL (4.8-10.8)
--- NOTE | 2017-01-30 20:40 | DIAGNOSTIC IMAGING REPORT ---
CHEST ONE VIEW PORTABLE CLINICAL HISTORY: Atypical chest pain COMPARISON STUDY: 10/14/2016 FINDINGS: The heart is enlarged. There is no overt failure. There is no lobar consolidation. There is minor left basilar atelectasis/scarring similar to the prior study. There are no pleural effusions. Arthritic changes are present within the shoulders.[ IMPRESSION: Stable mild cardiomegaly and left basilar atelectasis/scarring. No evidence of lobar consolidation. Electronically signed by: Brant Toledo M.D. 01/30/2017 8:39 PM Dictated Date/Time: 01/30/2017 8:38 PM
[2017-01-30 20:48] LABS: PARTIAL THROMBOPLASTIN RATIO 1.1; PROTHROMBIN TIME (PATIENT) 10.6 SECONDS (9.0-12.0)
[2017-01-30 20:54] LABS: BUN/CREATININE RATIO 11.3 (10-20); CALCIUM 9.3 mg/dl (8.5-10.1); CREATININE 1.3 mg/dl (0.60-1.40); POTASSIUM 4.1 mmol/L (3.5-5.1)
--- NOTE | 2017-01-30 20:56 | DIAGNOSTIC IMAGING REPORT ---
CT HEAD WITHOUT CONTRAST (CT) CLINICAL HISTORY: Dizziness COMPARISON STUDY: 12/12/2016 TECHNIQUE: Axial CT of the brain is performed from the vertex to the skull base. IV contrast was not administered for this examination. CT DOSE: 537.48 mGy.cm FINDINGS: No intra or extra-axial mass lesions are visualized. There is no CT evidence of acute cortical infarction. There is no evidence of midline shift. There is no acute hemorrhage. No calvarial fractures are visualized. There are patchy white matter hypodensities likely on a small vessel basis. There is no evidence of pathologic ventricular dilatation. There is no evidence of acute sinusitis IMPRESSION: No change from the preceding study. No acute intracranial findings. Electronically signed by: Brant Toledo M.D. 01/30/2017 8:55 PM Dictated Date/Time: 01/30/2017 8:54 PM
[2017-01-30 21:38] VITALS: BP 191/83; PULSE 85; O2SAT 94
[2017-01-30] MEDS ORDERED: ISOS30TA35 PO (22:08)
[2017-01-30] MEDS ORDERED: ASPI81TA28 PO (22:08)
[2017-01-30] MEDS ORDERED: APR25 PO (22:08)
--- NOTE | 2017-01-30 23:19 | EMERGENCY ROOM VISIT NOTE ---
History Report prepared by Calvin: Leslie Smallwood Under the Supervision of: Dr. Gumaro Vega M.D. First contact with patient: 19:46 Chief Complaint: DIZZY Stated Complaint: NAUSEA, VOMITING, DIZZINESS Nursing Triage Summary: Ongoing dizziness, patient unable to give a timeframe. LAst night started vomiting with the dizziness. History of Present Illness The patient is an 86 year old male who presents to the Emergency Room with complaints of persistent dizziness starting several months ago. He was in the ED before when he fell after getting dizzy. He denies any recent falls. He also reports some abdominal pain, nausea, and vomiting today. He did have an episode of vomiting several weeks ago after dizzy. He took some medication for his dizziness today to no significant relief. The dizziness worsens when he tried to move and improved when he is at rest. He denies any headache, chest pain, SOB , or bloody stools. He has a history of hypertension. Source of History: patient, family Onset: several months Position: other (global) Quality: other (dizziness) Timing: other (persistent) Modifying Factors (Worsening): movement Associated Symptoms: + nausea, + vomiting, + abdominal pain, No headache, No chest pain, No SOB, No hematochezia Review of Systems See HPI for pertinent positives & negatives. A total of 10 systems reviewed and were otherwise negative. Past Medical & Surgical Medical Problems: (1) Diabetes mellitus type 2 in nonobese (2) Dyslipidemia (3) GERD (gastroesophageal reflux disease) (4) Hearing loss (5) Hypertension Surgical Problems: (1) No significant past surgical history Old medical records were reviewed. Nurse's notes were reviewed and I agree with. Family History Hypertension Kidney disease Kidney stones Social History Smoking Status: Former Smoker Alcohol Use: none Drug Use: none Housing Status: lives alone Occupation Status: retired Current/Historical Medications Scheduled Amlodipine Besylate (Norvasc), 10 MG PO DAILY Aspirin (Aspirin Ec), 81 MG PO DAILY Atenolol (Tenormin), 100 MG PO DAILY Atorvastatin (Lipitor), 20 MG PO DAILY Calcium/Vitamin D (Os-Yordy 500 Plus D), 1 TAB PO DAILY Hydralazine Hcl (Apresoline), 25 MG PO BID Isosorbide Mononitrate Ext Rel (Imdur Ext Rel), 1 TAB PO QAM Metformin Hcl (Glucophage), 500 MG PO BIDM Omeprazole (Prilosec), 20 MG PO DAILY Scheduled PRN Meclizine Hcl (Meclizine Hcl), 25 MG PO TID PRN for Dizziness Allergies Coded Allergies: Penicillins (Verified Allergy, Unknown, unknown, 12/12/16) Physical Exam Vital Signs Date Time Temp Pulse Resp B/P (MAP) Pulse Ox O2 Delivery O2 Flow Rate FiO2 01/30/17 21:38 85 16 191/83 94 Room Air 01/30/17 21:07 80 17 166/79 95 Room Air 01/30/17 20:15 84 18 183/87 91 Room Air 01/30/17 19:42 81 01/30/17 19:38 36.6 81 17 190/79 95 Room Air Physical Exam General: Non ill appearing older male, extremely hard of hearing. Well developed well nourished in no acute distress, breathing comfortably on room air. Normal speech HEENT: Normal cephalic atraumatic. Pupils are equal round and reactive to light. Extraocular movements are intact. Oropharynx is pink with moist mucous membranes. No swelling of the mouth lips or tongue. Neck: Supple with a midline trachea. No meningeal signs or stiffness, no JVD or bruits. No Stridor. Chest: Clear to auscultation bilaterally. No wheezes or rhonchi. No increased work of breathing. Heart: regular rate and rhythm. Abdomen: Soft nontender, nondistended without rebound guarding or rigidity. Extremities: No cyanosis clubbing or edema. No calf tenderness or assymetry Spine/Back. Non tender to palpation. No CVA tenderness Skin: Good turgor without rashes. Neurologic exam: Cranial nerves two through 12 are intact. Motor and sensation are intact and symmetrical throughout. Medical Decision & Procedures ER Provider Diagnostic Interpretation: X-ray results as stated below per interpretation by me and the radiologist. Radiology results as stated below per my review and radiologist interpretation: CHEST ONE VIEW PORTABLE CLINICAL HISTORY: Atypical chest pain COMPARISON STUDY: 10/14/2016 FINDINGS: The heart is enlarged. There is no overt failure. There is no lobar consolidation. There is minor left basilar atelectasis/scarring similar to the prior study. There are no pleural effusions. Arthritic changes are present within the shoulders.[ IMPRESSION: Stable mild cardiomegaly and left basilar atelectasis/scarring. No evidence of lobar consolidation. Electronically signed by: Brant Toledo M.D. 01/30/2017 8:39 PM Dictated Date/Time: 01/30/2017 8:[address] HEAD WITHOUT CONTRAST (CT) CLINICAL HISTORY: Dizziness COMPARISON STUDY: 12/12/2016 TECHNIQUE: Axial CT of the brain is performed from the vertex to the skull base. IV contrast was not administered for this examination. CT DOSE: 537.48 mGy.cm FINDINGS: No intra or extra-axial mass lesions are visualized. There is no CT evidence of acute cortical infarction. There is no evidence of midline shift. There is no acute hemorrhage. No calvarial fractures are visualized. There are patchy white matter hypodensities likely on a small vessel basis. There is no evidence of pathologic ventricular dilatation. There is no evidence of acute sinusitis IMPRESSION: No change from the preceding study. No acute intracranial findings. Electronically signed by: Brant Toledo M.D. 01/30/2017 8:55 PM Dictated Date/Time: 01/30/2017 8:54 PM Laboratory Results 01/30/17 20:20 Red Blood Count 4.33, Mean Corpuscular Volume 91.7, Mean Corpuscular Hemoglobin 31.6, Mean Corpuscular Hemoglobin Concent 34.5, Mean Platelet Volume 9.5, Neutrophils (%) (Auto) 81.3, Lymphocytes (%) (Auto) 13.7, Monocytes (%) (Auto) 4.4, Eosinophils (%) (Auto) 0.2, Basophils (%) (Auto) 0.2, Neutrophils # (Auto) 10.24, Lymphocytes # (Auto) 1.73, Monocytes # (Auto) 0.56, Eosinophils # (Auto) 0.03, Basophils # (Auto) 0.03 01/30/17 20:20 Test 01/30/17 20:20 01/30/17 20:31 White Blood Count 12.62 K/uL (4.8-10.8) Red Blood Count 4.33 M/uL (4.7-6.1) Hemoglobin 13.7 g/dL (14.0-18.0) Hematocrit 39.7 % (42-52) Mean Corpuscular Volume 91.7 fL (80-100) Mean Corpuscular Hemoglobin 31.6 pg (25-34) Mean Corpuscular Hemoglobin Concent 34.5 g/dl (32-36) Platelet Count 229 K/uL (130-400) Mean Platelet Volume 9.5 fL (7.4-10.4) Neutrophils (%) (Auto) 81.3 % Lymphocytes (%) (Auto) 13.7 % Monocytes (%) (Auto) 4.4 % Eosinophils (%) (Auto) 0.2 % Basophils (%) (Auto) 0.2 % Neutrophils # (Auto) 10.24 K/uL (1.4-6.5) Lymphocytes # (Auto) 1.73 K/uL (1.2-3.4) Monocytes # (Auto) 0.56 K/uL (0.11-0.59) Eosinophils # (Auto) 0.03 K/uL (0-0.5) Basophils # (Auto) 0.03 K/uL (0-0.2) RDW Standard Deviation 46.8 fL (36.4-46.3) RDW Coefficient of Variation 14.0 % (11.5-14.5) Immature Granulocyte % (Auto) 0.2 % Immature Granulocyte # (Auto) 0.03 K/uL (0.00-0.02) Prothrombin Time 10.6 SECONDS (9.0-12.0) Prothromb Time International Ratio 1.0 (0.9-1.1) Activated Partial Thromboplast Time 28.2 SECONDS (21.0-31.0) Partial Thromboplastin Ratio 1.1 Anion Gap 6.0 mmol/L (3-11) Est Creatinine Clear Calc Drug Dose 38.7 ml/min Estimated GFR () 57.3 Estimated GFR (Non- 49.4 BUN/Creatinine Ratio 11.3 (10-20) Calcium Level 9.3 mg/dl (8.5-10.1) Total Bilirubin 0.5 mg/dl (0.2-1) Direct Bilirubin 0.1 mg/dl (0-0.2) Aspartate Amino Transf (AST/SGOT) 25 U/L (15-37) Alanine Aminotransferase (ALT/SGPT) 32 U/L (12-78) Alkaline Phosphatase 101 U/L (45-117) Total Protein 8.6 gm/dl (6.4-8.2) Albumin 4.2 gm/dl (3.4-5.0) Lipase 121 U/L (73-393) Bedside Troponin I < 0.030 ng/ml (0-0.045) Laboratory studies as stated above per my review. Medications Administered Medications (Trade) Dose Ordered Sig/Florentin Route Start Time Stop Time Status Last Admin Dose Admin Meclizine HCl (Antivert Tab) 25 mg NOW STAT PO 01/30/17 19:51 01/30/17 19:53 DC 01/30/17 20:29 25 MG Sodium Chloride 250 ml @ 999 mls/hr Q16M STAT IV 01/30/17 19:53 01/30/17 20:08 DC 01/30/17 20:28 999 MLS/HR Sodium Chloride 1,000 ml @ 100 mls/hr Q10H STAT IV 01/30/17 19:53 01/30/17 22:32 DC 01/30/17 20:29 100 MLS/HR ECG Indication: other (dizziness) Rate (beats per minute): 81 Rhythm: normal sinus Findings: PVC, no acute ischemic change, other (normal intervals) Comparison ECG Date: 12-Dec-2016 Change: PVC now present. ED Course 1946: Past medical records reviewed. The patient was evaluated in room B4B, and a complete history and physical examination were performed. 1950: Meclizine HCl 25 mg PO. 1952: NSS 1000 ml @ 100 mls/hr IV, NSS 250 ml @ 999 mls/hr IV. 2154: Upon reevaluation, the patient is resting comfortably. I spoke with his son and he notes that the patient often has these problems. I discussed the results and treatment plan with him. He verbalized agreement of the treatment plan. He will follow up with his PCP. The patient was discharged home. Medical Decision Differentials include, but are not limited to; vertigo, CVA, infection, arrhythmia, dehydration, electrolyte or metabolic abnormality. Medication Reconciliation: I attest that I have personally reviewed the patient' s current medication list. Blood pressure Screening: Patient was found to have an elevated blood pressure and was referred to their primary doctor for recheck and further treatment. This patient comes in as described above. He is placed in room B4. He had an episode of vertigo and dizzines.s he's had this several times before this seems to be chronic issues and some vomiting as well as a looks well on exam. He is hard of hearing. He has a normal neurologic exam. He has nothing to suggest a central neurologic process. CAT scan of his head was unremarkable. EKG was unremarkable. He has no acute electrolyte or metabolic abdomen and was he was given IV hydration as well as meclizine. He is feeling better and is able ambulate without difficulty. I talked about the patient and his son who is at the bedside they both feel is safe to go home. He is able ambulate well. He should follow-up with his regular doctor and return if : worsening of symptoms, any new problems or concerns. They're happy the plan and he was discharged to home. Impression Primary Impression: Dizziness Scribe Attestation The scribe's documentation has been prepared under my direction and personally reviewed by me in its entirety. I confirm that the note above accurately reflects all work, treatment, procedures, and medical decision making performed by me. Departure Information Dispostion Home / Self-Care Referrals Asael Damian MD (PCP) Forms HOME CARE DOCUMENTATION FORM, IMPORTANT VISIT INFORMATION Patient Instructions My [facility] Additional Instructions Rest. Drink plenty of fluids. REturn if: worsening of symptoms, numbness or weakness, chest pain, any new problems or concerns. Be careful when getting up and down. Use your meclizine as previously directed.
== END 2017-01-30 22:01 | disposition home or self-care (01) ==
LOC: EDBD 19:22 → C.EDB 19:24
DX: R42 Dizziness and giddiness (principal); I10 Essential (primary) hypertension; E11.9 Type 2 diabetes mellitus without complications; E78.5 Hyperlipidemia, unspecified; K21.9 Gastro-esophageal reflux disease without esophagitis; H91.90 Unspecified hearing loss, unspecified ear; Z82.49 Family history of ischemic heart disease and other diseases of the circulatory system; Z84.1 Family history of disorders of kidney and ureter; Z87.891 Personal history of nicotine dependence; Z79.82 Long term (current) use of aspirin; Z79.899 Other long term (current) drug therapy

== ENCOUNTER 2017-05-14 12:31 | Emergency (ER) | payer OTHER ==
[~2017-05-14] VITALS: Ht 172.7 cm; Wt 79.9 kg
[~2017-05-14 12:31] MED LIST changes: -ALUMCHW6 PO; +ASPI81TA28 PO; +CALC500C70 PO; -IMDSR30 PO; +ISOS30TA35 PO; -METF500T PO; -OMEP20TA PO
[2017-05-14 12:48] VITALS: TEMP 36.7; Ht 172.7 cm; Wt 79.9 kg
--- NOTE | 2017-05-14 13:01 | EMERGENCY ROOM VISIT NOTE ---
History Report prepared by Calvin: Brent Marr Under the Supervision of: Dr. Edwin Aldana D.O. First contact with patient: 12:51 Chief Complaint: CHEST PAIN Stated Complaint: DIZZINESS/NAUSEA/CHEST PAIN Nursing Triage Summary: Pt states pain in his stomach woke him uo, when he goes to stand up he gets CP and feels like he is going to black out, states he has a hx of vertigo. Pt vey CHEFORNAK, a/ox3, Lungs CTA, abd non tender, pt c/o of nausea, positive pulses, BERRIOS. History of Present Illness The patient is a 87 year old male who presents to the Emergency Room with complaints of chest pain that began this morning. He rates his pain moderate in severity. The patient has a past medical history of vertigo. At this time, the patient woke up with pain in his abdomen. When he stood up, he started to experience chest pain, lightheadedness, and dizziness. He describes his dizziness as the room spinning. He is currently nauseated with abdominal pain. His symptoms worsen when he stands up. He denies any shortness of breath, back pain, or headache. Source of History: patient Onset: this morning Position: chest Symptom Intensity: moderate Quality: sharp Timing: constant Modifying Factors (Worsening): movement (Standing up) Associated Symptoms: + nausea, + abdominal pain, No headache, No SOB, No back pain Note: He is experiencing lightheadedness and dizziness. Review of Systems See HPI for pertinent positives & negatives. A total of 10 systems reviewed and were otherwise negative. Past Medical & Surgical Medical Problems: (1) Diabetes mellitus type 2 in nonobese (2) Dyslipidemia (3) GERD (gastroesophageal reflux disease) (4) Hearing loss (5) Hypertension Surgical Problems: (1) No significant past surgical history Family History Hypertension Kidney disease Kidney stones Social History Smoking Status: Former Smoker Alcohol Use: none Drug Use: none Housing Status: lives alone Occupation Status: retired Current/Historical Medications Scheduled Amlodipine Besylate (Norvasc), 10 MG PO DAILY Aspirin (Aspirin Ec), 81 MG PO DAILY Atenolol (Tenormin), 100 MG PO DAILY Atorvastatin (Lipitor), 20 MG PO DAILY Calcium/Vitamin D (Os-Yordy 500 Plus D), 1 TAB PO DAILY Hydralazine Hcl (Apresoline), 25 MG PO BID Isosorbide Mononitrate Ext Rel (Imdur Ext Rel), 1 TAB PO QAM Metformin Hcl (Glucophage), 500 MG PO BIDM Omeprazole (Prilosec), 20 MG PO DAILY Scheduled PRN Meclizine Hcl (Meclizine Hcl), 25 MG PO TID PRN for Dizziness Allergies Coded Allergies: Penicillins (Verified Allergy, Unknown, unknown, 05/14/17) Physical Exam Vital Signs Date Time Temp Pulse Resp B/P (MAP) Pulse Ox O2 Delivery O2 Flow Rate FiO2 05/14/17 17:40 84 20 150/93 96 05/14/17 15:53 84 20 175/110 94 Room Air 05/14/17 14:33 82 05/14/17 14:14 82 18 184/79 94 Room Air 05/14/17 13:12 96 Room Air 05/14/17 12:58 178/86 187/82 179/73 05/14/17 12:48 36.7 81 18 187/96 Room Air 05/14/17 12:41 88 05/14/17 12:36 96 Room Air Physical Exam GENERAL: Patient is awake, alert, and in no acute distress. Patient is resting comfortably and showing mild signs of anxiety EYES: The conjunctivae are clear. The pupils are round and reactive. EARS, NOSE, MOUTH AND THROAT: The nose is without any evidence of any deformity. Mucous membranes are moist tongue is midline NECK: The neck is nontender and supple. RESPIRATORY: Diminished bibasilar breath sounds. No tachypnea or conversational dyspnea noted. CARDIOVASCULAR: Regular rate and rhythm noted, ectopy noted to auscultation GASTROINTESTINAL: The abdomen is soft. Mildly distended. Bowel sounds are present in all quadrants. Abdomen is diffusely tender. No guarding or rigidity. MUSCULOSKELETAL/EXTREMITIES: There is no evidence of gross deformity full range of motion is noted in the hips and shoulders SKIN: There is no obvious evidence of any rash. There are no petechiae, pallor or cyanosis noted. NEUROLOGIC: Patient is awake alert and oriented x3 strength is diminished but symmetric Medical Decision & Procedures ER Provider Diagnostic Interpretation: Radiology results as stated below per my review and radiologist interpretation: HEAD CT NONCONTRAST CT DOSE: 537.48 mGy.cm HISTORY: Dizziness. EVALUATE ALTERED MENTAL STATUS/WEAKNESS TECHNIQUE: Multiaxial CT images of the head were performed without the use of intravenous contrast. Automated exposure control was utilized for this study. A dose lowering technique was utilized adhering to the principles of ALARA. Comparison: Head CT 01/30/2017. Findings: The paranasal sinuses and mastoid air cells are clear. The calvarium and skull base are intact. There is no mass, hematoma, midline shift, acute infarct. White matter hypodensity is nonspecific but suggestive of microvascular ischemic change. The ventricles and sulci demonstrate mild age-related involutional changes. Impression: No significant change compared to the prior study. No acute intracranial abnormality. Electronically signed by: Ken Villela M.D. 05/14/2017 2:10 PM Dictated Date/Time: 05/14/2017 2:00 PM CHEST ONE VIEW PORTABLE CLINICAL HISTORY: EVALUATE ALTERED MENTAL STATUS/WEAKNESS dyspnea COMPARISON STUDY: 01/30/2017 FINDINGS: The bones soft tissues and hemidiaphragms are normal. The cardiomediastinal silhouette is normal. Slight interstitial prominence throughout the mid and lower lungs bilaterally. No consolidative or focal infiltrate. IMPRESSION: Mild bronchitis. The above report was generated using voice recognition software. It may contain grammatical, syntax or spelling errors. Electronically signed by: Chan Roper M.D. 05/14/2017 1:31 PM Dictated Date/Time: 05/14/2017 1:30 PM ABD/PELVIS NO IV OR ORAL CONT CLINICAL HISTORY: 87 years-old Male presenting with pain, near syncope. TECHNIQUE: Multidetector CT of the abdomen and pelvis was performed without the use of intravenous contrast. IV contrast: None. A dose lowering technique was used consistent with the principles of ALARA (as low as reasonably achievable). COMPARISON: None. CT DOSE (mGy.cm): The estimated cumulative dose is 344.96 mGy.cm. FINDINGS: Art Historian topogram: Unremarkable. Lung bases: Minimal dependent changes likely atelectasis. Mild multichamber enlargement of the heart. Aortic valve calcification. No pericardial or pleural effusion. Liver: Normal morphology. No liver lesion. Patent hepatic vasculature. Biliary: No intrahepatic or extrahepatic biliary ductal dilatation. Normal gallbladder. Pancreas: Mild parenchymal atrophy. Spleen: Normal. Adrenal glands: Normal. Kidneys and ureters: Normal. No hydronephrosis. Bladder: Normal. Pelvic organs: Prostate and seminal vesicles normal. Calcification of the vas deferens suggests diabetes. Bowel: Sigmoid diverticulosis. Normal appendix. Peritoneal cavity: No free fluid or intraperitoneal gas. Vasculature: Atherosclerosis of the normal caliber abdominal aorta. Few prominent Lymph nodes: Lymph nodes in the portacaval and jaimee hepatis regions measuring up to 9 mm in the short axis, possibly reactive. Abdominal wall: Normal. Musculoskeletal: Degenerative changes of the spine. IMPRESSION: 1. No acute intra-abdominal pathology. 2. Chronic findings as above. Electronically signed by: Reymundo Gong M.D. 05/14/2017 2:08 PM Dictated Date/Time: 05/14/2017 2:01 PM Laboratory Results 05/14/17 12:35 Red Blood Count 4.69, Mean Corpuscular Volume 90.8, Mean Corpuscular Hemoglobin 31.6, Mean Corpuscular Hemoglobin Concent 34.7, Mean Platelet Volume 9.6, Neutrophils (%) (Auto) 72.3, Lymphocytes (%) (Auto) 22.8, Monocytes (%) (Auto) 3.9, Eosinophils (%) (Auto) 0.2, Basophils (%) (Auto) 0.2, Neutrophils # (Auto) 5.85, Lymphocytes # (Auto) 1.85, Monocytes # (Auto) 0.32, Eosinophils # (Auto) 0.02, Basophils # (Auto) 0.02 05/14/17 12:35 Test 05/14/17 12:35 05/14/17 13:22 05/14/17 14:08 White Blood Count 8.11 K/uL (4.8-10.8) Red Blood Count 4.69 M/uL (4.7-6.1) Hemoglobin 14.8 g/dL (14.0-18.0) Hematocrit 42.6 % (42-52) Mean Corpuscular Volume 90.8 fL (80-100) Mean Corpuscular Hemoglobin 31.6 pg (25-34) Mean Corpuscular Hemoglobin Concent 34.7 g/dl (32-36) Platelet Count 215 K/uL (130-400) Mean Platelet Volume 9.6 fL (7.4-10.4) Neutrophils (%) (Auto) 72.3 % Lymphocytes (%) (Auto) 22.8 % Monocytes (%) (Auto) 3.9 % Eosinophils (%) (Auto) 0.2 % Basophils (%) (Auto) 0.2 % Neutrophils # (Auto) 5.85 K/uL (1.4-6.5) Lymphocytes # (Auto) 1.85 K/uL (1.2-3.4) Monocytes # (Auto) 0.32 K/uL (0.11-0.59) Eosinophils # (Auto) 0.02 K/uL (0-0.5) Basophils # (Auto) 0.02 K/uL (0-0.2) RDW Standard Deviation 45.9 fL (36.4-46.3) RDW Coefficient of Variation 13.9 % (11.5-14.5) Immature Granulocyte % (Auto) 0.6 % Immature Granulocyte # (Auto) 0.05 K/uL (0.00-0.02) Prothrombin Time 10.7 SECONDS (9.0-12.0) Prothromb Time International Ratio 1.0 (0.9-1.1) Activated Partial Thromboplast Time 28.9 SECONDS (21.0-31.0) Partial Thromboplastin Ratio 1.1 Anion Gap 8.0 mmol/L (3-11) Est Creatinine Clear Calc Drug Dose 41.9 ml/min Estimated GFR () 62.6 Estimated GFR (Non- 54.0 BUN/Creatinine Ratio 12.0 (10-20) Calcium Level 9.3 mg/dl (8.5-10.1) Phosphorus Level 2.0 mg/dl (2.5-4.9) Magnesium Level 2.2 mg/dl (1.8-2.4) Total Bilirubin 0.7 mg/dl (0.2-1) Direct Bilirubin 0.1 mg/dl (0-0.2) Aspartate Amino Transf (AST/SGOT) 24 U/L (15-37) Alanine Aminotransferase (ALT/SGPT) 33 U/L (12-78) Alkaline Phosphatase 101 U/L (45-117) Total Creatine Kinase 57 U/L (39-308) Creatine Kinase MB 0.8 ng/ml (0.5-3.6) Creatine Kinase MB Ratio 1.4 (0-3.0) Troponin I < 0.015 ng/ml (0-0.045) Total Protein 8.7 gm/dl (6.4-8.2) Albumin 4.5 gm/dl (3.4-5.0) Thyroid Stimulating Hormone (TSH) 2.690 uIu/ml (0.300-4.500) Bedside Glucose 174 mg/dl (70-99) Urine Color YELLOW Urine Appearance CLEAR (CLEAR) Urine pH 8.5 (4.5-7.5) Urine Specific [place] 1.014 (1.000-1.030) Urine Protein 1+ (NEG) Urine Glucose (UA) 1+ (NEG) Urine Ketones 1+ (NEG) Urine Occult Blood NEG (NEG) Urine Nitrite NEG (NEG) Urine Bilirubin NEG (NEG) Urine Urobilinogen NEG (NEG) Urine Leukocyte Esterase NEG (NEG) Urine WBC (Auto) 0 /hpf (0-5) Urine RBC (Auto) 0-4 /hpf (0-4) Urine Hyaline Casts (Auto) 1-5 /lpf (0-5) Urine Epithelial Cells (Auto) 5-10 /lpf (0-5) Urine Bacteria (Auto) NEG (NEG) Laboratory results per my review. Medications Administered Medications (Trade) Dose Ordered Sig/Florentin Route Start Time Stop Time Status Last Admin Dose Admin Sodium Chloride 500 ml @ 999 mls/hr Q31M STAT IV 05/14/17 15:21 05/14/17 15:51 DC 05/14/17 15:53 999 MLS/HR Meclizine HCl (Antivert Tab) 25 mg NOW STAT PO 05/14/17 15:25 05/14/17 15:27 DC 05/14/17 15:53 25 MG ECG Indication: chest pain Rate (beats per minute): 84 Rhythm: normal sinus Findings: PVC (frequent), other (No STS abnormalities) ED Course 1251: The patient was evaluated in room C5. A complete history and physical examination were performed. 1521: Ordered NSS 500 ml @ 999 mls/hr IV 1525: Ordered Antivert Tab 25 mg PO 1730: Upon reevaluation, the patient is resting. I discussed the results and treatment plan with him. He verbalized agreement of the treatment plan. He was discharged home. Medical Decision Differential diagnosis: Etiologies such as benign positional vertigo, dehydration, hypovolemia, anemia, tumor, infection, hypoglycemia, electrolyte abnormalities, cardiac sources, intracerebral event, toxicologic, neurologic, as well as others were entertained. Nursing notes reviewed. Additional history is obtained from the patient's son. The patient is an 87-year-old male who presented to the emergency department for an evaluation of dizziness. The patient has a history of vertigo. His history and physical exam today appear to be consistent with his vertigo symptoms. He had other complaints to for the prehospital personnel. The patient does not have any chest pain at this time. I discussed the patient's laboratory and radiographic studies with him. According to his son he has had similar symptoms in the past and appears to be at his baseline. The patient was encouraged to continue all medications as prescribed and call his primary care physician to schedule follow-up appointment. He was also encouraged return to the emergency Department immediately if symptoms change worsen or the need arises. Medication Reconcilliation Current Medication List: was personally reviewed by me Blood Pressure Screening Patient's blood pressure: Elevated blood pressure Blood pressure disposition: Elevated BP felt to be situational Impression Primary Impression: Vertigo Additional Impression: PVCs (premature ventricular contractions) Scribe Attestation The scribe's documentation has been prepared under my direction and personally reviewed by me in its entirety. I confirm that the note above accurately reflects all work, treatment, procedures, and medical decision making performed by me. Departure Information Dispostion Home / Self-Care Referrals Asael Damian MD (PCP) Forms HOME CARE DOCUMENTATION FORM, IMPORTANT VISIT INFORMATION Patient Instructions ED Dizziness [facility], My [facility] Additional Instructions Call your family in the morning to schedule a follow-up appointment. Rest and avoid any strenuous activity. Continue all medications as prescribed. Return to the emergency department immediately if symptoms change worsen or the need arises. Problem Qualifiers
[2017-05-14 13:12] VITALS: O2SAT 96
[2017-05-14 13:27] LABS: BASO % 0.2 %; BASO ABS # 0.02 K/uL (0-0.2); COMPLETE YES; EOS % 0.2 %; HEMATOCRIT 42.6 % (42-52); IG% 0.6 %; LYMPH % 22.8 %; LYMPH ABS # 1.85 K/uL (1.2-3.4); MEAN CELL VOLUME 90.8 fL (80-100); MEAN CORPUSCULAR HEMOGLOBIN 31.6 pg (25-34); MEAN CORPUSCULAR HGB CONC 34.7 g/dl (32-36); MEAN PLATELET VOLUME 9.6 fL (7.4-10.4); MONO % 3.9 %; NEUT % 72.3 %; PLATELET COUNT 215 K/uL (130-400); RED BLOOD COUNT 4.69 M/uL (4.7-6.1); WHITE BLOOD COUNT 8.11 K/uL (4.8-10.8)
--- NOTE | 2017-05-14 13:33 | DIAGNOSTIC IMAGING REPORT ---
CHEST ONE VIEW PORTABLE CLINICAL HISTORY: EVALUATE ALTERED MENTAL STATUS/WEAKNESS dyspnea COMPARISON STUDY: 01/30/2017 FINDINGS: The bones soft tissues and hemidiaphragms are normal. The cardiomediastinal silhouette is normal. Slight interstitial prominence throughout the mid and lower lungs bilaterally. No consolidative or focal infiltrate. IMPRESSION: Mild bronchitis. The above report was generated using voice recognition software. It may contain grammatical, syntax or spelling errors. Electronically signed by: Chan Roper M.D. 05/14/2017 1:31 PM Dictated Date/Time: 05/14/2017 1:30 PM
[2017-05-14 13:41] LABS: PARTIAL THROMBOPLASTIN RATIO 1.1; PROTHROMBIN TIME (PATIENT) 10.7 SECONDS (9.0-12.0)
[2017-05-14 13:48] LABS: BLOOD UREA NITROGEN 14 mg/dl (7-18); CALCIUM 9.3 mg/dl (8.5-10.1); CARBON DIOXIDE 26 mmol/L (21-32); CHLORIDE 103 mmol/L (98-107); GLUCOSE 184 mg/dl (70-99); MAGNESIUM 2.2 mg/dl (1.8-2.4); POTASSIUM 3.9 mmol/L (3.5-5.1); SODIUM 137 mmol/L (136-145)
[2017-05-14 13:57] LABS: ALKALINE PHOSPHATASE 101 U/L (45-117); ALT/SGPT 33 U/L (12-78); AST/SGOT 24 U/L (15-37); CKMB/CK RATIO 1.4 (0-3.0)
--- NOTE | 2017-05-14 14:09 | DIAGNOSTIC IMAGING REPORT ---
ABD/PELVIS NO IV OR ORAL CONT CLINICAL HISTORY: 87 years-old Male presenting with pain, near syncope. TECHNIQUE: Multidetector CT of the abdomen and pelvis was performed without the use of intravenous contrast. IV contrast: None. A dose lowering technique was used consistent with the principles of ALARA (as low as reasonably achievable). COMPARISON: None. CT DOSE (mGy.cm): The estimated cumulative dose is 344.96 mGy.cm. 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 Lung bases: Minimal dependent changes likely atelectasis. Mild multichamber enlargement of the heart. Aortic valve calcification. No pericardial or pleural effusion. Liver: Normal morphology. No liver lesion. Patent hepatic vasculature. Biliary: No intrahepatic or extrahepatic biliary ductal dilatation. Normal gallbladder. Pancreas: Mild parenchymal atrophy. Spleen: Normal. Adrenal glands: Normal. Kidneys and ureters: Normal. No hydronephrosis. Bladder: Normal. Pelvic organs: Prostate and seminal vesicles normal. Calcification of the vas deferens suggests diabetes. Bowel: Sigmoid diverticulosis. Normal appendix. Peritoneal cavity: No free fluid or intraperitoneal gas. Vasculature: Atherosclerosis of the normal caliber abdominal aorta. Few prominent Lymph nodes: Lymph nodes in the portacaval and jaimee hepatis regions measuring up to 9 mm in the short axis, possibly reactive. Abdominal wall: Normal. Musculoskeletal: Degenerative changes of the spine. IMPRESSION: 1. No acute intra-abdominal pathology. 2. Chronic findings as above. Electronically signed by: Reymundo Gong M.D. 05/14/2017 2:08 PM Dictated Date/Time: 05/14/2017 2:01 PM
--- NOTE | 2017-05-14 14:12 | DIAGNOSTIC IMAGING REPORT ---
HEAD CT NONCONTRAST CT DOSE: 537.48 mGy.cm HISTORY: Dizziness. EVALUATE ALTERED MENTAL STATUS/WEAKNESS TECHNIQUE: Multiaxial CT images of the head were performed without the use of intravenous contrast. Automated exposure control was utilized for this study. A dose lowering technique was utilized adhering to the principles of ALARA. Comparison: Head CT 01/30/2017. Findings: The paranasal sinuses and mastoid air cells are clear. The calvarium and skull base are intact. There is no mass, hematoma, midline shift, acute infarct. White matter hypodensity is nonspecific but suggestive of microvascular ischemic change. The ventricles and sulci demonstrate mild age-related involutional changes. Impression: No significant change compared to the prior study. No acute intracranial abnormality. Electronically signed by: Ken Villela M.D. 05/14/2017 2:10 PM Dictated Date/Time: 05/14/2017 2:00 PM
[2017-05-14 14:26] LABS: URINE APPEARANCE CLEAR (CLEAR); URINE BILIRUBIN NEG (NEG); URINE COLOR YELLOW; URINE NITRITE NEG (NEG); URINE PH 8.5 (4.5-7.5); URINE SPECIFIC GRAVITY 1.014 (1.000-1.030); UROBILINOGEN NEG (NEG)
[2017-05-14 14:32] LABS: MANUAL MICROSCOPIC REQUIRED? NO; REVIEW REQ? NO; SULFASALICYLIC ACID POS (NEG)
[2017-05-14] MEDS ORDERED: ATEN50TA PO (14:54)
[2017-05-14] MEDS ORDERED: SODIUM CHLORIDE 0.9% 500ML 500 ML IV STA (15:21)
[2017-05-14] MEDS ORDERED: MECLIZINE HCL 25 MG TAB PO STA (15:25)
[2017-05-14 17:40] VITALS: BP 150/93; PULSE 84; O2SAT 96
== END 2017-05-14 17:40 | disposition home or self-care (01) ==
LOC: EDBD 12:31 → C.EDC 12:34
DX: R42 Dizziness and giddiness (principal); I49.3 Ventricular premature depolarization; E11.9 Type 2 diabetes mellitus without complications; E78.5 Hyperlipidemia, unspecified; K21.9 Gastro-esophageal reflux disease without esophagitis; I10 Essential (primary) hypertension; Z87.891 Personal history of nicotine dependence; Z79.84 Long term (current) use of oral hypoglycemic drugs; Z79.82 Long term (current) use of aspirin; Z82.49 Family history of ischemic heart disease and other diseases of the circulatory system; Z84.1 Family history of disorders of kidney and ureter

== ENCOUNTER 2019-01-12 16:17 | Inpatient (IN) ==
[2019-01-12] MEDS ORDERED: ONDANSETRON INJ 2 MG/ML 2 ML VIAL IV STA (16:51)
[2019-01-12] MEDS ORDERED: MECLIZINE HCL 25 MG TAB PO STA (16:51)
[2019-01-12] MEDS ORDERED: SODIUM CHLORIDE 0.9% 500 ML IV SCH (17:00)
[2019-01-12 17:11] LABS: Basophils # (auto) 0.03 K/uL (0-0.2); Basophils % (auto) 0.3 %; Eosinophils # (auto) 0.04 K/uL (0-0.5); Eosinophils % (auto) 0.4 %; Hematocrit (blood only) 37.5 % (42-52); Hemoglobin 13.5 g/dL (14.0-18.0); Immature Granulocytes # (auto) 0.02 K/uL (0.00-0.02); Immature Granulocytes % (auto) 0.2 %; Lymphocytes # (auto) 1.65 K/uL (1.2-3.4); Lymphocytes % (auto) 16.8 %; Mean Corpuscular Volume 87.6 fL (80-100); Mean Platelet Volume 9.2 fL (7.4-10.4); Monocytes # (auto) 0.54 K/uL (0.11-0.59); Monocytes % (auto) 5.5 %; Neutrophils # (auto) 7.53 K/uL (1.4-6.5); Neutrophils % (auto) 76.8 %; Platelet Count 242 K/uL (130-400); RDW Coefficient of Variation 13.4 % (11.5-14.5); RDW Standard Deviation 42.6 fL (36.4-46.3); Red Blood Count 4.28 M/uL (4.7-6.1); White Blood Count 9.81 K/uL (4.8-10.8)
[2019-01-12 17:23] LABS: Prothrombin Time 10.4 Seconds (9.0-12.0)
[2019-01-12 17:30] LABS: Alanine Aminotransferase 35 U/L (12-78); Aspartate Aminotransferase 28 U/L (15-37); BUN Creatinine Ratio 9.1 (10-20); Blood Urea Nitrogen 11 mg/dl (7-18); Calcium 9.4 mg/dl (8.5-10.1); Carbon Dioxide 31 mmol/L (21-32); Chloride 91 mmol/L (98-107); Creatinine Clr Calc Pharmacy 39.8 ml/min; Est GFR (African American) 62.2; Est GFR (Non-African American) 53.7; Glucose 173 mg/dl (70-99); Potassium 3.1 mmol/L (3.5-5.1); Sodium 131 mmol/L (136-145)
[2019-01-12 17:35] LABS: Albumin Globulin Ratio 0.9 (0.9-2); Alkaline Phosphatase 77 U/L (45-117); Bilirubin,Total 0.5 mg/dl (0.2-1); Globulin 4.3 gm/dl (2.5-4.0); Total Protein 8.3 gm/dl (6.4-8.2); Troponin I < 0.015 ng/ml (0-0.045)
[2019-01-12 17:37] LABS: Appearance Urine Clear (Clear); Bilirubin Urine Negative (Negative); Blood Urine Negative (Negative); Color Urine Yellow; Glucose Urine UA 1+ (Negative); Ketones Urine Negative (Negative); Leukocyte Esterase Urine Negative (Negative); Nitrite Urine Negative (Negative); Protein Urine Negative (Negative); Specific Gravity Urine 1.013 (1.000-1.030); Urobilinogen Urine Negative (Negative)
--- NOTE | 2019-01-12 17:38 | CT Scan Report ---
HEAD CT NONCONTRAST CT DOSE: 537.48 mGy.cm HISTORY: dizzy TECHNIQUE: Multiaxial CT images of the head were performed without the use of intravenous contrast. A utomated exposure control was utilized for this study. A dose lowering technique was utilized adheri ng to the principles of ALARA. Comparison: Head CT 08/04/2018. Findings: The paranasal sinuses and mastoid air cells are clear. The calvarium and skull base are int act. There is no mass, hematoma, midline shift, acute infarct. White matter hypodensity is nonspecifi c but suggestive of microvascular ischemic change. The ventricles and sulci demonstrate mild age-rela savi involutional changes. There is a new wedge-shaped hypodense area within the left occipital lobe. This favors a subacute to chronic infarct. 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 No hematoma or a cute infarct identified at this time. Electronically signed by: Ken Villela M.D. 01/12/2019 5:37 PM
--- NOTE | 2019-01-12 17:43 | XRay Report ---
XR chest 1V portable HISTORY: dizzy COMPARISON: Chest 08/04/2018. FINDINGS: No pneumothorax. No pleural effusions. The heart is borderline enlarged. No evidence for pu lmonary edema. No new focal lung consolidations to suggest pneumonia. IMPRESSION: No acute process. Electronically signed by: Ken Villela M.D. 01/12/2019 5:41 PM
[2019-01-12] MEDS ORDERED: ASPIRIN 325 MG ECTAB PO ONE (18:15)
[2019-01-12] MEDS: POTASSIUM CHLORIDE / WTR 10 MEQ/100 ML PLCT IV SCH (18:30)
[2019-01-12 18:38] LABS: Magnesium 1.6 mg/dl (1.8-2.4)
--- NOTE | 2019-01-12 19:34 | History & Physical Report ---
Date of Service January 12, 2019 Assessment & Plan (1) CVA (cerebral vascular accident): CT head shows subacute CVA involving the occipital lobe Ordered for acute stroke work-up: MRI of brain with and without contrast, CT of neck, echo evaluation for cardiac thrombus History of chronic A. fib, not on anticoagulation secondary -risk of fall, recent intracranial hemorrhage) 6 months back Neurology consulted Continue with aspirin Statin dose increased to 40 mg daily for high intensity statin therapy Goal LDL less than 70 Ordered for PT OT evaluation (2) Dizziness: Secondary to involve PRN meclizine ordered for symptom control Precaution (3) Atrial fibrillation: Hx PAF not on anticoagulation secondary to recurrent falls Continued on beta-trev (4) Hypertension: Allow permissive hypertension for adequate cerebral perfusion post ischemic CVA (5) Diabetes mellitus type 2 in nonobese: A1c: 8.5 on 01/03/19 Hold metformin: Insulin sliding scale (6) History of subarachnoid hemorrhage: Hx subarachnoid hemorrhage 07/2018 after fall DNR/DNI as per discussion with pt Follows with Dr Damian for routine care Pt was seen with Dr Bajwa. See addendum for assessment and plan History of Present Illness Chief Complaint: Dizziness Primary Care Provider: Asael Damian MD Pt is 88 y/o M with PMH HTN, DM II, dyslipidemia, GERD, h/o subarachnoid hemorrhage 07/2018, paroxysmal atrial fibrillation not on anticoagulation secondary to falls, h/o frequent falls presented to ER with complaint of dizziness. Patient is hard of hearing and has some memory problems, history obtained from patient and assisted by patient's daughter. Reported the patient has been having intermittent dizziness over the past several months seems worse past couple of weeks. States today increased dizziness and had associated nausea and vomiting and some anterior chest pressure. Denies any syncope. Chronic Left eye vision loss, feels right eye vision is worsening over the past several months. Patient reports he believes his falls in the past were secondary to dizziness. Patient has a walker to assist with ambulation however daughter reports he does not always use his walker. Pt was having issues with med compliance, however recently able to have his medications in pill packs and having better med compliance. Reports had morning meds today. Has [facility] following pt. Denies fever/chills, diaphoresis, diarrhea, constipation, [place], neck pain, SOB, orthopnea, palpitations, cough, sore throat, choking, otalgia, rhinorrhea, abdominal pain, paresthesias, extremity weakness, extremity edema, rashes, urinary symptoms. Allergies Allergy/AdvReac Type Severity Reaction Status Date / Time Penicillins Allergy Unknown unknown Verified 08/04/18 11:54 Home Medications Home Medications Medication Instructions Recorded Confirmed Type atorvastatin 20 mg PO QPM 08/04/18 01/12/19 History chlorthalidone 25 mg PO DAILY 08/04/18 01/12/19 History metformin 500 mg PO BID 08/04/18 01/12/19 History metoprolol succinate 25 mg PO DAILY 08/04/18 01/12/19 History amlodipine 5 mg PO DAILY 01/12/19 01/12/19 History aspirin 325 mg PO DAILY 01/12/19 01/12/19 History meclizine 25 mg PO TID PRN 01/12/19 01/12/19 History Past Med/Surg History Medical History 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; deaf in right ear Personnel Research Psychologist Required: No Beliefs That Will Affect Care: None Current Living Situation: Alone Feels Safe at Home: Yes Safety Concerns: Feels Safe At This Time Smoking Status: Never smoker Hx Alcohol Use: No Hx Substance Use: No Review of Systems Review of Systems: All systems reviewed & are unremarkable except as noted in HPI & below Physical Exam Physical Exam: General: no distress, WDWN Head: normocephalic, atraumatic Eyes: PERRL, EOM's intact, conjunctiva non-injected, anicteric ENT: normal inspection external ears, nose, mucous membranes mildly dry. +very hard of hearing Neck: supple, trachea midline, non-tender Lungs: clear, no respiratory distress, no wheezing/rhonchi/rales CV: irregularly irregular, rate76, no pretibial edema Abd: normal BS, soft, non-tender Ext: no cyanosis, no calf tenderness Neuro: A&O to person, place, month, day, year, symmetric eyebrow raise, tongue midline, no facial drooping, no slurred speech symmetric pumper gager apprentice strength, strength 4/5 upper and lower extremities, normal affect Skin: warm, dry Results & Data Vital Signs (Past 12 Hours) Vital Signs Temp Pulse Pulse Resp BP BP Pulse Ox 01/12/19 18:31 74 18 156/90 H 95 01/12/19 16:25 36.7 C 72 18 177/97 H 96 Laboratory Results Short CBC 01/12/19 Range/Units 16:59 WBC 9.81 (4.8-10.8) K/uL Hgb 13.5 L (14.0-18.0) g/dL Hct 37.5 L (42-52) % Plt Count 242 (130-400) K/uL BMP 01/12/19 16:59 Sodium 131 L Potassium 3.1 L Chloride 91 L Carbon Dioxide 31 BUN 11 Creatinine 1.20 Glucose 173 H Calcium 9.4 Cardiac Enzymes 01/12/19 Range/Units 16:59 Troponin I < 0.015 (0-0.045) ng/ml Liver Function 01/12/19 Range/Units 16:59 Total Bilirubin 0.5 (0.2-1) mg/dl AST 28 (15-37) U/L ALT 35 (12-78) U/L Alkaline Phosphatase 77 (45-117) U/L Albumin 4.0 (3.4-5.0) gm/dl Urine 01/12/19 Range/Units 17:17 Urine Color Yellow Urine Appearance Clear (Clear) Urine pH 8.0 H (4.5-7.5) Ur Specific [place] 1.013 (1.000-1.030) Urine Protein Negative (Negative) Urine Glucose (UA) 1+ H (Negative) Diagnostic Findings CXR: IMPRESSION: No acute process. 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 No hematoma or acute infarct identified at this time. ECG Rate (beats per minute): 77 Rhythm: atrial fibrillation Code Status & VTE Plan Code Status DNR/DNI: Discussed with patient Has a living well VTE Prophylaxis Plan VTE Prophylaxis will be ordered: Yes Supervising Physician Co-Signing Physician Notes Attending addendum: Patient seen and examined, care coordinated with Kailey Rodriguez PA-C This is a 88-year-old male with past medical history of traumatic injury to head leading to subarachnoid hemorrhage in July 2018, Was transferred to [facility], treated conservatively History of atrial fibrillation, off anticoagulation secondary to history of recurrent fall/SAH Type 2 diabetes not on insulin Brought to ED by patient's daughter as patient complained of severe dizzy spell, lightheadedness this morning associate with nausea In the ER CT head noncontrast showed: subacute left occipital lobe infarct which is new from prior study No hematoma or acute infarct identified at this time Physical exam: Please review physical examination documented by Kailey Rodriguez PA-C Assessment plan Acute CVA: Patient is continued with Aspirin will d/w neurology for risk /benefit of dual antiplatelet therapy history of atrial fibrillation, no anticoagulation ordered secondary to prior history of subarachnoid hemorrhage approximately 6 months back Patient is not a candidate for chronic anticoagulation Stroke work-up:ordered MRI brain ordered/CTA of neck echo to assess for cardiac emboli monitor in tele Allow permissive hypertension to keep adequate cerebral perfusion any setting of ischemic CVA Neurology consult requested Patient passed dysphagia screen in ER Ordered for mechanical soft diet, aspiration precaution PT OT evaluation requested CODE STATUS: DNR/DNI, plan of care discussed with patient's daughter present at bedside Disposition: Lives at home, with family frequently checking on him Ambulates with walker Patient may need acute rehab, Social service consult for discharge planning These refer to further documentation by Bridgett Rodriguez PA-C for discussion of other chronic issues Dayan Bajwa MD
[2019-01-12] MEDS ORDERED: ONDANSETRON INJ 2 MG/ML 2 ML VIAL IV PRN (20:32)
[2019-01-12] MEDS ORDERED: ALUMINUM/MAGNESIUM SUSP 30 ML UDC PO PRN (20:32)
[2019-01-12] MEDS ORDERED: GLUCAGON FOR INJ 1 MG VIAL SQ PRN (20:32)
[2019-01-12] MEDS ORDERED: ACETAMINOPHEN 325 MG TAB PO PRN (20:32)
[2019-01-12] MEDS ORDERED: MECLIZINE HCL 25 MG TAB PO PRN (20:32)
[2019-01-12] MEDS ORDERED: MAGNESIUM HYDROXIDE SUSP 30 ML UDC PO PRN (20:32)
[2019-01-12] MEDS ORDERED: PHARMACIST DISCHARGE MED REC CONSULT PRN (20:32)
[2019-01-12] MEDS ORDERED: POLYETHYLENE (MIRALAX) 17 GM PACK PO PRN (20:32)
[2019-01-12] MEDS ORDERED: GLUCOSE 10 TABS/TUBE PO PRN (20:32)
[2019-01-12] MEDS ORDERED: GLUCOSE 40% GEL 15 GM TUBE PO PRN (20:32)
[2019-01-12] MEDS ORDERED: DEXTROSE 50% 50 ML SYRINGE IV PRN (20:32)
[2019-01-12] MEDS ORDERED: CARBOHYDRATES FOR HYPOGLYCEMIA PO PRN (20:32)
--- NOTE | 2019-01-12 21:50 | Emergency Department Note ---
Entered by Estrella Oro acting as a scribe for Shoaib Castillo DO History of Present Illness General Chief complaint: Vertigo Source: patient and family Mode of arrival: ambulatory Limitations: other (Patient is very hard of hearing) History of Present Illness Onset (ago): week(s) 3 Location: head Radiation: non-radiation Pain Consistency: + intermittent Maximum Pain Intensity: 4 Relieved By: + none Exacerbated By: + movement Associated symptoms: + nausea/vomiting and + other (-change in vision); no chest pain, no cough, no headaches, no shortness of breath and no weakness (-weakness or numbness in the arms or legs) Treatments prior to arrival: none The patient is an 88 year old male who presents to the ED with complaints of vertigo. He states he started experiencing vertigo a few weeks ago. Today, his dizziness worsened, so he came to the ED. His symptoms are worsened by movement. His daughter reports he vomited earlier today. He denies any headache, change in vision or weakness or numbness in the arms or legs. He notes he occasionally falls from the dizziness but no etiology has been found. He denies any tinnitus. He denies any chest pain, shortness of breath or cough. The patient does take a daily Aspirin. No other complaints at this time. He notes that dizziness is significantly worsened with movement of his head. Home Medications Home Medications Medication Instructions Recorded Confirmed Type atorvastatin 20 mg PO QPM 08/04/18 01/12/19 History chlorthalidone 25 mg PO DAILY 08/04/18 01/12/19 History metformin 500 mg PO BID 08/04/18 01/12/19 History metoprolol succinate 25 mg PO DAILY 08/04/18 01/12/19 History amlodipine 5 mg PO DAILY 01/12/19 01/12/19 History aspirin 325 mg PO DAILY 01/12/19 01/12/19 History meclizine 25 mg PO TID PRN 01/12/19 01/12/19 History Allergies Allergy/AdvReac Type Severity Reaction Status Date / Time Penicillins Allergy Unknown unknown Verified 08/04/18 11:54 Past Med/Surg History Medical History History of subarachnoid hemorrhage (Chronic) 07/2018; conservative measures 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) GERD (gastroesophageal reflux disease) (Chronic) Hypertension (Chronic) Dyslipidemia (Chronic) Hearing loss (Chronic) "hearing aid" Noncompliance with medications (Chronic) PAF (paroxysmal atrial fibrillation) (Chronic) Family History Other Family history unknown Social History Preferred Language: Malay Communication Ability: Effective Communication Ability Comment: Patient is very [place]; deaf in right ear [employer] L[employer]er Required: No Beliefs That Will Affect Care: None Current Living Situation: Alone Feels Safe at Home: Yes Safety Concerns: Feels Safe At This Time Smoking Status: Never smoker Hx Alcohol Use: No Hx Substance Use: No Review of Systems See HPI for pertinent positives & negatives. and A total of 10 systems reviewed and were otherwise negative Physical Exam Vital Signs Vital Signs - 24 hr 01/12/19 16:25 01/12/19 17:08 01/12/19 18:31 Temperature 36.7 C Temperature Source Oral Sepsis Recent Fever Within 48 Hours No Sepsis New/Unexplained Change in Mental Status No Sepsis Action Taken by Nursing No Action Required Pulse Rate - Lying 81 Pulse Rate - Sitting 85 Pulse Rate - Standing 74 Pulse Rate 72 Pulse Rate [Right Finger] 74 Pulse Rhythm Regular Pulse Strength Normal Respiratory Rate 18 18 Respiratory Effort / Characteristics Non-Labored Respiratory Depth Normal Respiratory Pattern Regular Blood Pressure - Lying 145/109 H Blood Pressure - Sitting 164/73 H Blood Pressure- Standing 174/98 H Blood Pressure 177/97 H Blood Pressure [Left Arm] 156/90 H Blood Pressure Mean 123 Blood Pressure Mean [Left Arm] 112 Blood Pressure Position Sitting Pulse Oximetry 96 95 Oxygen Delivery Method Room Air GENERAL: Patient is sitting up in bed, alert, well appearing, hard of hearing, well nourished, no distress, non-toxic EYE EXAM: normal conjunctiva, PERRL and EOM's grossly intact OROPHARYNX: no exudate, no erythema, lips, buccal mucosa, and tongue normal and mucous membranes are moist NECK: supple, no nuchal rigidity, no adenopathy, non-tender LUNGS: Clear to auscultation. Normal chest wall mechanics HEART: no murmurs, S1 normal and S2 normal ABDOMEN: abdomen soft, non-tender, normo-active bowel sounds, no masses, no rebound or guarding. BACK: Back is symmetrical on inspection and there is no deformity, no midline tenderness, no CVA tenderness. SKIN: no rashes and no bruising UPPER EXTREMITIES: upper extremities are grossly normal. LOWER EXTREMITIES: No pitting edema. NEURO EXAM: Normal sensorium, cranial nerves II-XII intact, normal speech, no weakness of arms, no weakness of legs. No drift. 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 Gross sensation intact. Course ED COURSE: Vital signs were reviewed and showed the patient is hypertensive. The patients medical record was reviewed The above diagnostic studies were performed and reviewed. ED treatments and interventions as stated above. 1643: The patient was evaluated in room B9. A complete history and physical examination was performed. 1749: Upon reevaluation, the patient is resting comfortably. I discussed my findings with the patient and he and his family understand and agree with the treatment plan. 1753: I discussed the patients case with Kailey Rodriguez PA-C, [facility]. The patient will be further evaluated. Based on the patients age, coexisting illnesses, exam and lab findings the decision to treat as an inpatient was made. The patient remained stable while under my care. The patient will be evaluated for further management. Consultations Consultation #1: I discussed the patients case with Kailey [facility]-C, [facility]. The patient will be further evaluated. Time: 17:53 Administered Medications Discontinued Medications Sodium Chloride (Nss) 500 mls @ 999 mls/hr IV .Q31M VIRI Stop: 01/12/19 17:30 Last Infusion: 01/12/19 17:51 Dose: 0 mls/hr Documented by: [id number] Admin: 01/12/19 17:14 Dose: 999 mls/hr Documented by: [id number] Potassium Chloride (K Abdirizak / Wtr) 10 meq in 100 mls @ 100 mls/hr IV Q1H VIRI Stop: 01/12/19 20:29 Last Infusion: 01/12/19 19:36 Dose: 0 mls/hr Documented by: [id number] Admin: 01/12/19 18:30 Dose: 100 mls/hr Documented by: [id number] Meclizine HCl (Antivert) 25 mg PO NOW STA Stop: 01/12/19 16:52 Last Admin: 01/12/19 17:13 Dose: 25 mg Documented by: [id number] Ondansetron HCl (Zofran) 4 mg IV NOW STA Stop: 01/12/19 16:52 Last Admin: 01/12/19 17:14 Dose: 4 mg Documented by: [id number] Medical Decision Making Differential Diagnosis Differential Diagnosis includes but is not limited to ischemic Stroke, hemorrhagic stroke, bells palsy, mass, neoplasm, migraine headache, seizure, subarachnoid hemorrhage, TIA, and transient global amnesia. Medical Records Attestation: I reviewed the patient's medical records. Home Medications Current Medication List: was personally reviewed by me Laboratory Data Attestation: I reviewed the patient's lab results. Result diagrams: 01/12/19 16:59 01/12/19 16:59 Lab Results 01/12/19 01/12/19 01/12/19 Range/Units 16:59 16:59 16:59 WBC 9.81 (4.8-10.8) K/uL RBC 4.28 L (4.7-6.1) M/uL Hgb 13.5 L (14.0-18.0) g/dL Hct 37.5 L (42-52) % MCV 87.6 (80-100) fL MCH 31.5 (25-34) pg MCHC 36.0 (32-36) g/dL RDW Std Deviation 42.6 (36.4-46.3) fL RDW Coeff of Natan 13.4 (11.5-14.5) % Plt Count 242 (130-400) K/uL MPV 9.2 (7.4-10.4) fL Immature Gran % (Auto) 0.2 % Neut % (Auto) 76.8 % Lymph % (Auto) 16.8 % [place] % (Auto) 5.5 % Eos % (Auto) 0.4 % Baso % (Auto) 0.3 % Immature Gran # (Auto) 0.02 (0.00-0.02) K/uL Neut # (Auto) 7.53 H (1.4-6.5) K/uL Lymph # (Auto) 1.65 (1.2-3.4) K/uL [place] # (Auto) 0.54 (0.11-0.59) K/uL Eos # (Auto) 0.04 (0-0.5) K/uL Baso # (Auto) 0.03 (0-0.2) K/uL PT 10.4 (9.0-12.0) Seconds INR 1.0 (0.9-1.1) Sodium 131 L (136-145) mmol/L Potassium 3.1 L (3.5-5.1) mmol/L Chloride 91 L (98-107) mmol/L Carbon Dioxide 31 (21-32) mmol/L Anion Gap 9.0 (3-11) BUN 11 (7-18) mg/dl Creatinine 1.20 (0.6-1.4) mg/dl Est Cr Clr Drug Dosing 39.8 ml/min Est GFR ( Amer) 62.2 Est GFR (Non-Af Amer) 53.7 BUN/Creatinine Ratio 9.1 L (10-20) Glucose 173 H (70-99) mg/dl Calcium 9.4 (8.5-10.1) mg/dl Magnesium 1.6 L (1.8-2.4) mg/dl Total Bilirubin 0.5 (0.2-1) mg/dl AST 28 (15-37) U/L ALT 35 (12-78) U/L Alkaline Phosphatase 77 (45-117) U/L Troponin I < 0.015 (0-0.045) ng/ml Total Protein 8.3 H (6.4-8.2) gm/dl Albumin 4.0 (3.4-5.0) gm/dl Globulin 4.3 H (2.5-4.0) gm/dl Albumin/Globulin Ratio 0.9 (0.9-2) Urine Color Urine Appearance (Clear) Urine pH (4.5-7.5) Ur Specific [place] (1.000-1.030) Urine Protein (Negative) Urine Glucose (UA) (Negative) Urine Ketones (Negative) Urine Blood (Negative) Urine Nitrite (Negative) Urine Bilirubin (Negative) Urine Urobilinogen (Negative) Ur Leukocyte Esterase (Negative) 01/12/19 Range/Units 17:17 WBC (4.8-10.8) K/uL RBC (4.7-6.1) M/uL Hgb (14.0-18.0) g/dL Hct (42-52) % MCV (80-100) fL MCH (25-34) pg MCHC (32-36) g/dL RDW Std Deviation (36.4-46.3) fL RDW Coeff of Natan (11.5-14.5) % Plt Count (130-400) K/uL MPV (7.4-10.4) fL Immature Gran % (Auto) % Neut % (Auto) % Lymph % (Auto) % [place] % (Auto) % Eos % (Auto) % Baso % (Auto) % Immature Gran # (Auto) (0.00-0.02) K/uL Neut # (Auto) (1.4-6.5) K/uL Lymph # (Auto) (1.2-3.4) K/uL [place] # (Auto) (0.11-0.59) K/uL Eos # (Auto) (0-0.5) K/uL Baso # (Auto) (0-0.2) K/uL PT (9.0-12.0) Seconds INR (0.9-1.1) Sodium (136-145) mmol/L Potassium (3.5-5.1) mmol/L Chloride (98-107) mmol/L Carbon Dioxide (21-32) mmol/L Anion Gap (3-11) BUN (7-18) mg/dl Creatinine (0.6-1.4) mg/dl Est Cr Clr Drug Dosing ml/min Est GFR ( Amer) Est GFR (Non-Af Amer) BUN/Creatinine Ratio (10-20) Glucose (70-99) mg/dl Calcium (8.5-10.1) mg/dl Magnesium (1.8-2.4) mg/dl Total Bilirubin (0.2-1) mg/dl AST (15-37) U/L ALT (12-78) U/L Alkaline Phosphatase (45-117) U/L Troponin I (0-0.045) ng/ml Total Protein (6.4-8.2) gm/dl Albumin (3.4-5.0) gm/dl Globulin (2.5-4.0) gm/dl Albumin/Globulin Ratio (0.9-2) Urine Color Yellow Urine Appearance Clear (Clear) Urine pH 8.0 H (4.5-7.5) Ur Specific [place] 1.013 (1.000-1.030) Urine Protein Negative (Negative) Urine Glucose (UA) 1+ H (Negative) Urine Ketones Negative (Negative) Urine Blood Negative (Negative) Urine Nitrite Negative (Negative) Urine Bilirubin Negative (Negative) Urine Urobilinogen Negative (Negative) Ur Leukocyte Esterase Negative (Negative) Imaging Data Radiologist's Impression: Radiology results as stated below per my review and the radiologist's interpretation: XR chest 1V portable HISTORY: dizzy COMPARISON: Chest 08/04/2018. FINDINGS: No pneumothorax. No pleural effusions. The heart is borderline enlarged. No evidence for pulmonary edema. No new focal lung consolidations to suggest pneumonia. IMPRESSION: No acute process. Electronically signed by: Ken Villela M.D. 01/12/2019 5:[address]AST CT DOSE: 537.48 mGy.cm HISTORY: dizzy TECHNIQUE: Multiaxial CT images of the head were performed without the use of intravenous contrast. Automated exposure control was utilized for this study. A dose lowering technique was utilized adhering to the principles of ALARA. Comparison: Head CT 08/04/2018. Findings: The paranasal sinuses and mastoid air cells are clear. The calvarium and skull base are intact. There is no mass, hematoma, midline shift, acute infarct. White matter hypodensity is nonspecific but suggestive of microvascular ischemic change. The ventricles and sulci demonstrate mild age-related involutional changes. There is a new wedge-shaped hypodense area within the left occipital lobe. This favors a subacute to chronic infarct. 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 No hematoma or acute infarct identified at this time. Electronically signed by: Ken Villela M.D. 01/12/2019 5:37 PM ECG Data Attestation: I personally reviewed and interpreted this ECG as follows: Indication: other (vertigo) Rate (beats per minute): 77 Rhythm: atrial flutter (with variable block) Findings: + other (normal axis, poor baseline); no PVC Blood Pressure Blood Pressure Findings: Elevated blood pressure Blood Pressure Disposition: further management by hospitalist KAREN Narrative Patient is an 80-year-old male presents the ER for intermittent dizziness which is been present for the past 2 weeks. Symptoms are currently improved significantly. He notes that dizziness is worse with movement. Vitals were obtained and he was slightly hypertensive. Labs show no significant leukocytosis or anemia. INR was unremarkable. BMP with mild hypokalemia. LFTs and bilirubin was unremarkable. Troponin was negative. UA was unremarkable. CT shows a subacute left occipital stroke which I do question if this is causing his symptoms. Patient was updated bedside. He was initially given IV fluids and Antivert orally per he does have A. fib and is currently in this at this time. He has had multiple previous falls before in the past and will defer anticoagulation at this time to the hospitalist. Impression & Plan CVA (cerebral vascular accident) Discharge Plan Visit Data *Final* Discharge Date/Time: 01/12/19 19:54 Chief Complaint: Vertigo ED Provider: Shoaib Castillo Discharge Problem: CVA (cerebral vascular accident) Patient Disposition: Admitted As Inpatient Discharge Instructions Interventions: ED Discharge Assessment Last Done: 01/12/19 19:54 The scribe's documentation has been prepared under my direction and personally reviewed by me in its entirety. I confirm that the note above accurately reflects all work, treatment, procedures, and medical decision making performed by me.
[2019-01-12] MEDS ORDERED: OPTIRAY 320 125ml IV PRN (22:15)
--- NOTE | 2019-01-12 22:42 | CT Scan Report ---
HEAD & NECK CTA HISTORY: Dizziness. Abnormal head CT. Stroke symptoms. TECHNIQUE: Multiaxial CT images of the head were performed following the intravenous administration o f contrast to evaluate the major cerebral vessels. Multiaxial CT images of the neck were also perform ed following the intravenous administration of contrast to evaluate the major cervical vessels. Maxim um intensity projection images were also obtained. A dose lowering technique was utilized adhering to the principles of ALARA. COMPARISON: Head CT 01/12/2019. FINDINGS: Mild calcified plaque within the bilateral carotid siphons. The major dural venous sinuses are patent . Visualized intracranial internal carotid arteries, distal vertebral arteries, and basilar artery ar e widely patent. 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 The aortic arch and proximal great vessels are widely patent. The bilateral common carotid and vert ebral arteries are widely patent. Mild calcified plaque within the left carotid bifurcation. The left internal carotid artery is widely patent. Extensive calcified plaque within the right carotid bifurc ation. This results in approximately 60-70% focal stenosis at the origin of the right internal caroti d artery. This is best seen on image 195. The remaining right internal carotid artery is widely paten t. IMPRESSION: 1. No significant stenosis, occlusion, or aneurysm within the [place] of [place]. 2. No significant stenosis, occlusion, or dissection identified within the left carotid or vertebral arteries. 3. Approximate 60-70% focal stenosis at the origin of the right internal carotid artery due to the ca lcified plaque. Electronically signed by: Ken Villela M.D. 01/12/2019 10:40 PM
[2019-01-12] MEDS: ATORVASTATIN 40 MG TAB PO SCH (23:34)
[2019-01-12] MEDS ORDERED: GADOBUTROL 65ML VIAL IV PRN (23:35)
[2019-01-12] MEDS ORDERED: GADOBUTROL 7.5ML VIAL IV PRN (23:35)
[2019-01-12] MEDS: INSULIN ASPART 100 UNITS/ML 3 ML PEN SC SCH (23:39)
[2019-01-13] MEDS: POTASSIUM CHLORIDE / WTR 10 MEQ/100 ML PLCT IV SCH (00:50)
--- NOTE | 2019-01-13 05:41 | Magnetic Resonance Report ---
MR angio head wo con HISTORY: ACUTE/SUBACUTE CVA OCCIPTAL REGION TECHNIQUE: 3-D [id number] MRA of the brain was performed without contrast. COMPARISON STUDY: None. FINDINGS: Visualized intracranial internal carotid arteries, distal vertebral arteries, and basilar a rtery are widely patent. 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 IMPRESSION: No significant stenosis, occlusion, or aneurysm within the [place]. The above report was generated using voice recognition software. It may contain grammatical, syntax or spelling errors. Electronically signed by: Chan Roper M.D. 01/13/2019 5:40 AM
--- NOTE | 2019-01-13 05:46 | Magnetic Resonance Report ---
MR brain wo/w con CLINICAL HISTORY: ACUTE/SUBACUTE CVA AT OCCIPTAL REGION COMPARISON STUDY: No previous studies for comparison. TECHNIQUE: Utilizing a 1.5 Rafaela magnet and dedicated coil, multiplanar, multiecho imaging of the br ain was performed pre and postcontrast administration. IV administration of 8 mL of Gadavist contras t was uneventful. FINDINGS: Subacute left occipital infarct. This shows partial hemorrhagic component. Remainder the st udy shows evidence for age-related atrophy and chronic small vessel change. The system is midline. IMPRESSION: Subacute left occipital infarct showing partial hemorrhagic conversion. The above report was generated using voice recognition software. It may contain grammatical, syntax or spelling errors. Electronically signed by: Chan Roper M.D. 01/13/2019 5:44 AM
[2019-01-13 06:08] LABS: Basophils # (auto) 0.03 K/uL (0-0.2); Basophils % (auto) 0.4 %; Eosinophils # (auto) 0.02 K/uL (0-0.5); Eosinophils % (auto) 0.2 %; Hematocrit (blood only) 34.7 % (42-52); Hemoglobin 12.3 g/dL (14.0-18.0); Immature Granulocytes # (auto) 0.02 K/uL (0.00-0.02); Immature Granulocytes % (auto) 0.2 %; Lymphocytes # (auto) 2.49 K/uL (1.2-3.4); Lymphocytes % (auto) 29.6 %; Mean Corpuscular Hgb Conc 35.4 g/dL (32-36); Mean Corpuscular Volume 88.1 fL (80-100); Mean Platelet Volume 9.1 fL (7.4-10.4); Monocytes % (auto) 8.3 %; Neutrophils # (auto) 5.15 K/uL (1.4-6.5); Neutrophils % (auto) 61.3 %; Platelet Count 240 K/uL (130-400); RDW Coefficient of Variation 13.7 % (11.5-14.5); RDW Standard Deviation 44.2 fL (36.4-46.3); Red Blood Count 3.94 M/uL (4.7-6.1); White Blood Count 8.41 K/uL (4.8-10.8)
[2019-01-13 06:36] LABS: BUN Creatinine Ratio 10.2 (10-20); Calcium 9.3 mg/dl (8.5-10.1); Creatinine Clr Calc Pharmacy 39.5 ml/min; Est GFR (African American) 61.6; Est GFR (Non-African American) 53.1; Magnesium 1.8 mg/dl (1.8-2.4); Potassium 3.1 mmol/L (3.5-5.1)
--- NOTE | 2019-01-13 06:49 | Hospitalist Progress Note ---
Date of Service January 13, 2019 Subjective Made aware by RN around 12 AM of MRI head initial read : recent left occipital infarction measuring 3 cm. Petechial hemorrhagic transformation, no midline shift. Patient coherent on stroke scale. AP ischemic CVA with hemorrhagic transformation on initial MRI read Past history ICH as per records Hold Aspirin for now. Follow official MRI report in a.m. Follow-up CT in 12 hours if ICH confirmed. Will relay to AM provider. Results & Data Vital Signs (Past 12 Hours) Vital Signs Temp Pulse Resp BP Pulse Ox 01/13/19 04:43 36.9 C 83 20 132/78 93 01/13/19 00:00 36.3 C L 92 H 16 145/86 H 96 01/12/19 20:40 36.4 C L 84 16 171/84 H 95
[2019-01-13 09:00] LABS: Platelet Function Test COL EPI 197 Seconds (80-184)
[2019-01-13] MEDS ORDERED: ASPIRIN 325 MG ECTAB PO SCH (09:00)
--- NOTE | 2019-01-13 09:05 | CT Scan Report ---
CT head/brain wo con CT DOSE: 537.48 mGy.cm HISTORY: Hemorrhage. Stroke. ich, ffup TECHNIQUE: Multiaxial CT images of the head were performed without the use of intravenous contrast. A dose lowering technique was utilized adhering to the principles of ALARA. Comparison: 01/12/2019 Findings: The paranasal sinuses and mastoid air cells are clear. Left occipital subacute infarct unch anged from the prior study. The petechial hemorrhagic component identified on MRI is not seen by CT c riteria. No new or interval process. Impression: 1. Subacute left occipital infarct unchanged compared to prior CT scan. 2. The petechial hemorrhagic component by MRI criteria is not seen on the CT study 3. No new or interval finding. The above report was generated using voice recognition software. It may contain grammatical, syntax or spelling errors. Electronically signed by: Chan Roper M.D. 01/13/2019 9:03 AM
[2019-01-13 09:09] LABS: Platelet Function Test COL ADP 107 Seconds (56-102)
--- NOTE | 2019-01-13 09:17 | Hospitalist Progress Note ---
Date of Service January 13, 2019 Assessment & Plan (1) CVA (cerebral vascular accident): History of chronic A. fib, not on anticoagulation secondary -risk of fall, recent intracranial hemorrhage) 6 months back -CT head shows subacute CVA involving the occipital lobe -MRI Brain - subacute left occipital infarct showing partial hemorrhagic conversion -Repeat CT head -subacute left occipital infarct unchanged. Petechial hemorrhagic component by MRI is not seen on CT scan. -Held ASA due to hemorrhagic conversion per MRI read. -Statin dose increased to 40 mg daily for high intensity statin therapy -Work up- CTA Head/ Neck - 60-70% focal stenosis at origin of right internal carotid artery due to calcified plaque; LDL -73, Echo- pending -PT/OT ordered -Neurology consulted--> Recommends holding aspirin due to partial hemorrhagic conversion per MRI---> CT to be repeated in 1 week and if no macro hemorrhage can resume ASA. Avoid dual antiplatelet due to risk of bleeding due to prior hx of SAH. Ordered platelet resistance test to know if aspirin resistance or taking it. Folic acid, VIT B12, RPR , orthostats ordered. Appreciate neurology inputs (2) Dizziness: Secondary to above PRN meclizine Orthostats ordered (3) Hypokalemia: Replete Monitor (4) Stenosis of right internal carotid artery: CTA Head/Neck- Right ICA stenosis 60-70% -Follow up Carotid ultrasound in 6 months (5) Atrial fibrillation: Hx PAF not on anticoagulation secondary to recurrent falls -Continued on beta-trev -Not on anticoagulation due to fall risk and hx of ICH 6 months back (6) Hypertension: -Allow permissive hypertension for adequate cerebral perfusion post ischemic CVA (7) Diabetes mellitus type 2 in nonobese: -A1c: 8.5 on 01/03/19 -Hold metformin: -Insulin sliding scale (8) History of subarachnoid hemorrhage: Hx subarachnoid hemorrhage 07/2018 after fall DNR/DNI as per discussion with pt DISPOSITION Medical mx in progress PT/OT ordered Follows with Dr Damian for routine care Discussed case with neurology Subjective Patient is extremely hard of hearing. Difficult to get a good history. Oriented to place, person. Did have intermittent dizziness over several months, worsening in the past few weeks. Denies any nausea, vomiting. No fever, chills, palpitations, pain, localized weakness or numbness. Does have vision problems and left eye Physical Exam Physical Exam: GENERAL- AAOX3, No acute distress HEAD- Atraumatic, Normocephalic EYES- No pallor, icterus, redness, discharge. Pupils are equal, round, reactive to light and accomodation. EARS- HARD OF HEARING + NOSE- No nasal discharge noted NECK- Supple, no JVD LUNGS- Air entry bilaterally equal. No rales, rhonchi, crackles, wheezes heard. HEART- Regular rate and rhythm. No murmurs ABDOMEN- Soft, non tender, non distended, Bowel sounds heard. EXTREMITIES- Good peripheral pulses, no edema NEUROLOGICAL EXAM- AAOX2, Pupils equal, Cranial nerves intact, Power 5/5 all ext Results & Data Vital Signs (Past 12 Hours) Vital Signs Temp Pulse Resp BP BP Pulse Ox 01/13/19 07:30 36.8 C 88 19 145/77 H 93 01/13/19 04:43 36.9 C 83 20 132/78 93 01/13/19 00:00 36.3 C L 92 H 16 145/86 H 96
--- NOTE | 2019-01-13 09:21 | Consultation Report ---
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 HISTORY OF PRESENT ILLNESS: Mr. 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 He was in his usual state of health and is a poor historian. It is reported that he has had intermittent dizziness over several months, which seemed to worse over the last several weeks. What the patient tells me and what is written in the chart are different. He indicates that he is only dizzy or off balance while standing. It is not clear to me that he gets orthostatic with standing or that he ever has any vertigo. He categorically denied any nausea and vomiting. Unclear if there was any recent change in vision. There is no headache. 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 The patient lives alone with his son living on the other half of his home. The patient administers his own medications. He does not know what his medications are. He is followed by [facility] at home. He has not otherwise been ill, not had any fever, chills, nausea, vomiting, diarrhea, constipation, shortness of breath, palpitations, sore throat, abdominal pain, unilateral weakness, numbness, or diplopia. HOME MEDICATIONS: Atorvastatin, chlorthalidone, metformin, metoprolol, amlodipine, aspirin. The chart indicates that the patient takes 325 mg per day. The patient cannot confirm. PAST MEDICAL HISTORY: He is unable to give medical history other than to state he has hypertension. He has had the aforementioned left occipital hemorrhage, posttraumatic with some associated subarachnoid hemorrhage, diabetes 2, reflux, hypertension, dyslipidemia, hearing loss, noncompliance with medicines, paroxysmal atrial fibrillation. PAST SURGICAL HISTORY: Unknown. SOCIAL HISTORY: Nonsmoker, nondrinker. Lives with son. ALLERGIES: PENICILLIN. FAMILY HISTORY: Unknown. DATABASE: CT of the head shows a subacute to chronic left occipital infarct but it was not previously noted on a prior CT. EKG: Atrial fibrillation. White count 9.81, H and H 13.5 and 37.5, platelet 242. Serum sodium is 131, BUN and creatinine 11/1.2. Troponin negative. Transaminases normal. Urinalysis 1+ glucose. Chest x-ray: No acute process. MRI brain: Subacute left occipital infarction showing partial hemorrhagic transformation. CTA of head and neck showing a 60%-70% focal stenosis at the origin of the right internal carotid artery due to calcific plaque. There is otherwise no significant stenosis, occlusion or aneurysm within the [place] of [place] and no occlusion or dissection identified within the left carotid or vertebral arteries or basilar artery. PHYSICAL EXAMINATION: GENERAL: The patient is awake and alert. VITAL SIGNS: 145/77, 88, 19, 36.8, 93%. NEUROLOGICAL: The patient is oriented to person, place, month and year. He does not know who the president is. His recall of his own medical history is poor. His memory is 0/3 at 3 minutes. No aphasia or right/left confusion is noted. His head is normocephalic, atraumatic. There is a well-healed left frontal region scar. There is no tenderness or swelling noted. His pupils are equal. I could not reliably visualize the optic nerves. Frye were full to confrontation. There is normal facial sensation and facial symmetry. Speech and language are normal. Tongue was midline. Motor: No resting tremor or cogwheel rigidity. Full strength, no drift. Normal rapid alternating movements. No jeff dysdiadochokinesia or any asymmetry to cerebellar function. [id number] is normal. Vibration sense is only present at the knees. I did not attempt ambulation. IMPRESSION AND PLAN: 1. This patient has a history of a left occipital traumatic hemorrhage with subarachnoid hemorrhage six months ago. Now an MRI appears to show a subacute infarction in that same region with a partial hemorrhagic transformation. Hold aspirin at present as the infarct is of moderate size. Repeat CT of head in 1 week. If no macro hemorrhage, can resume aspirin. I ordered a test for platelet for aspirin resistance. This will let us know if the patient is compliant and whether or not the antiplatelet therapy appears to be working. I would in general not recommend dual antiplatelet therapy as the patient has had a traumatic hemorrhage while on aspirin and now hemorrhagic transformation of an infarct while on aspirin. The addition of Plavix would increase the risk of intracranial bleedisn bleeding. 2. Right internal carotid stenosis, asymptomatic. Followup carotid ultrasound in 6 months and then yearly with referral to Vascular Surgery if 70% or greater. The patient appears to have poor posterior column function. This could be, i.e., neuropathy. This could be the reason for falls. Recommend checking B12, folate, RPR. Recommend checking orthostatics and I would try to obtain Ophthalmology records to see if the patient has had an amaurosis in the left eye or what he has been referring to as a field cut to the right. This may help us to determine the duration or the timing of the stroke. We will follow with you. LEONOR
[2019-01-13 09:33] LABS: Folate (Folic Acid) 19.52 ng/ml (>5.38)
[2019-01-13] MEDS: METOPROLOL SUCC 25MG EXT REL TAB PO SCH (09:33)
[2019-01-13] MEDS: ATORVASTATIN 40 MG TAB PO SCH (09:33)
[2019-01-13] MEDS ORDERED: POTASSIUM CHLORIDE 20 MEQ TABCR PO ONE (09:45)
[2019-01-13] MEDS: INSULIN ASPART 100 UNITS/ML 3 ML PEN SC SCH ×4 (09:59→21:11)
[2019-01-14 05:53] LABS: Basophils # (auto) 0.03 K/uL (0-0.2); Basophils % (auto) 0.4 %; Eosinophils # (auto) 0.05 K/uL (0-0.5); Eosinophils % (auto) 0.7 %; Hematocrit (blood only) 34.6 % (42-52); Hemoglobin 12.6 g/dL (14.0-18.0); Immature Granulocytes # (auto) 0.01 K/uL (0.00-0.02); Immature Granulocytes % (auto) 0.1 %; Lymphocytes # (auto) 2.39 K/uL (1.2-3.4); Mean Corpuscular Hgb Conc 36.4 g/dL (32-36); Mean Corpuscular Volume 87.8 fL (80-100); Mean Platelet Volume 8.5 fL (7.4-10.4); Monocytes # (auto) 0.56 K/uL (0.11-0.59); Neutrophils # (auto) 3.99 K/uL (1.4-6.5); Neutrophils % (auto) 56.8 %; Platelet Count 222 K/uL (130-400); RDW Coefficient of Variation 13.6 % (11.5-14.5); Red Blood Count 3.94 M/uL (4.7-6.1); White Blood Count 7.03 K/uL (4.8-10.8)
[2019-01-14 06:33] LABS: BUN Creatinine Ratio 10.7 (10-20); Calcium 8.8 mg/dl (8.5-10.1); Creatinine Clr Calc Pharmacy 38.2 ml/min; Est GFR (African American) 59.2; Est GFR (Non-African American) 51.1; Magnesium 1.8 mg/dl (1.8-2.4); Potassium 3.6 mmol/L (3.5-5.1)
[2019-01-14] MEDS: METOPROLOL SUCC 25MG EXT REL TAB PO SCH (08:04)
[2019-01-14] MEDS: ATORVASTATIN 40 MG TAB PO SCH (08:04)
[2019-01-14] MEDS: INSULIN ASPART 100 UNITS/ML 3 ML PEN SC SCH ×4 (08:04→20:57)
--- NOTE | 2019-01-14 11:11 | Hospitalist Progress Note ---
Date of Service January 14, 2019 Assessment & Plan (1) CVA (cerebral vascular accident): History of chronic A. fib, not on anticoagulation secondary - risk of fall, recent intracranial hemorrhage) 6 months back -CT head shows subacute CVA involving the occipital lobe -MRI Brain - subacute left occipital infarct showing partial hemorrhagic conversion -Repeat CT head - subacute left occipital infarct unchanged. Petechial hemorrhagic component by MRI is not seen on CT scan. -Held ASA due to hemorrhagic conversion per MRI read. -Statin dose increased to 40 mg daily for high intensity statin therapy -Work up- CTA Head/ Neck - 60-70% focal stenosis at origin of right internal carotid artery due to calcified plaque; LDL -73, Echo- - EF 55-60%, no shunting, Mild MR -PT/OT ordered- likely will need rehab -Neurology consulted--> Recommends holding aspirin due to partial hemorrhagic conversion per MRI---> CT to be repeated in 1 week and if no macro hemorrhage can resume ASA. Avoid dual antiplatelet due to risk of bleeding due to prior hx of SAH. Ordered platelet resistance test to know if aspirin resistance or taking it. Folic acid, VIT B12, RPR , orthostats ordered. Appreciate neurology inputs (2) Dizziness: Secondary to above -PRN Meclizine -Orthostats ordered (3) Hypokalemia: Resolved Monitor (4) Stenosis of right internal carotid artery: CTA Head/Neck- Right ICA stenosis 60-70% -Follow up Carotid ultrasound in 6 months. Conveyed to daughter the results and need for follow up (5) Atrial fibrillation: Hx PAF not on anticoagulation secondary to recurrent falls -Continued on beta-trev -Not on anticoagulation due to fall risk and hx of ICH 6 months back (6) Hypertension: Allow permissive hypertension for adequate cerebral perfusion post ischemic CVA Home regimen: Amlodipine 5 mg, Chlorthalidone 25 mg daily -Restart Amlodipine 5 mg daily with holding parameters -Chlorthalidone 25 mg will be restarted from tomorrow (7) Diabetes mellitus type 2 in nonobese: HBA1c: 8.5 on 01/03/19 -Hold metformin: -Insulin sliding scale (8) History of subarachnoid hemorrhage: Hx subarachnoid hemorrhage 07/2018 after fall DNR/DNI as per discussion with pt DISPOSITION Medical mx in progress PT/OT ordered- Likely will need rehab. Lives alone by himself Follows with Dr Damian for routine care Updated daughter over phone yesterday Subjective Patient is extremely hard of hearing. Difficult to get a good history. Oriented to place, person. Did have intermittent dizziness over several months, worsening in the past few weeks. Denies any nausea, vomiting. No fever, chills, palpitations, pain, localized weakness or numbness. Does have vision problems and left eye Physical Exam Physical Exam: GENERAL- AAOX3, No acute distress HEAD- Atraumatic, Normocephalic EYES- No pallor, icterus, redness, discharge. Pupils are equal, round, reactive to light and accomodation. Decreased vision in left eye EARS- HARD OF HEARING + LUNGS- Air entry bilaterally equal. No rales, rhonchi, crackles, wheezes heard. HEART- Regular rate and rhythm. No murmurs EXTREMITIES- Good peripheral pulses, no edema NEUROLOGICAL EXAM- AAOX2, Pupils equal, Cranial nerves intact, Power 5/5 all ext Results & Data Vital Signs (Past 12 Hours) Vital Signs Temp Pulse Pulse Resp BP Pulse Ox 01/14/19 09:00 70 01/14/19 07:34 36.8 C 68 18 173/77 H 95 01/14/19 04:07 36.4 C L 78 18 164/84 H 95 01/14/19 00:32 80 01/13/19 23:48 36.4 C L 79 18 171/83 H 94
[2019-01-14] MEDS: AMLODIPINE BESYLATE 5 MG TAB PO SCH (11:59)
[2019-01-14] MEDS ORDERED: MECLIZINE HCL 25 MG TAB PO PRN (15:26)
--- NOTE | 2019-01-14 17:48 | Neurology Progress Note ---
Date of Service January 14, 2019 Assessment & Plan (1) CVA (cerebral vascular accident): 1. MRI brain-Subacute left occipital infarct showing partial hemorrhagic conversion. 2. TTE EF 55-60% no ASD 3. known Afib not on anticoag due to fall history 4. CT head in 1 week for resolve of hemorrhage, then restart asa 5. home safety check 6. PT/OT for discharge needs 7. will need either 24/7 supervision in his home or will need facility that can provide supervision needed 8. stress using walker for ambulation follow up with neurology in 4-6 weeks Iesha Angelo PAC schedule. Supervising Physician Co-Signing Physician Notes I have seen and discussed above patient with Dr Iesha Black, neurology, brief exam, prov head manuevers neg. Gait min shuffling, not farhan, ustable. re stroke as above. Likely perip neurop, rec ncv as outpt poss peripheral labrin, vs Menieres like. Per daughter pt has been to [facility] at [place]. kasandra review. 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 He has had intermittent dizziness over several months, which seemed to worse over the last several weeks. He has dizziness with movement and has balance issues at baseline. His daughter is bedside and states he lives alone and wanted him to go to a facility but he refused. She is worried because he has to go upstairs in his home to take a shower. He had a stroke in his left eye, but feels that his vision is worsening. He also has cognitive issues at baseline that makes him somewhat impulsive and does not take caution when he is standing or walking and does not always use his walker at home. His daughter states the dizziness has been worked up at [facility] in [place]. denies CP, SOB, abdominal pain one sided weakness, numbness tingling, headache, double vision. Physical Exam Physical Exam: Gen: alert NAD Very [place] lungs Course breath sounds CV irregular symptoms reproduced with sitting up from lying position able to rise from sitting without assistance walks with 2 person assistance tandem sensory gait. Results & Data Vital Signs (Past 12 Hours) Vital Signs Temp Pulse Pulse Resp BP BP Pulse Ox 01/14/19 15:00 79 01/14/19 13:32 165/89 H 01/14/19 12:16 36.3 C L 74 16 155/76 H 96 01/14/19 09:00 70 01/14/19 07:34 36.8 C 68 18 173/77 H 95 Laboratory Results Abnormal lab results 01/13/19 01/14/19 01/14/19 Range/Units 20:40 05:43 05:43 RBC 3.94 L (4.7-6.1) M/uL Hgb 12.6 L (14.0-18.0) g/dL Hct 34.6 L (42-52) % MCHC 36.4 H (32-36) g/dL Sodium 135 L (136-145) mmol/L Chloride 95 L (98-107) mmol/L Carbon Dioxide 36 H (21-32) mmol/L Glucose 156 H (70-99) mg/dl POC Glucose 224 H (70-99) 01/14/19 01/14/19 01/14/19 Range/Units 07:40 11:53 16:37 RBC (4.7-6.1) M/uL Hgb (14.0-18.0) g/dL Hct (42-52) % MCHC (32-36) g/dL Sodium (136-145) mmol/L Chloride (98-107) mmol/L Carbon Dioxide (21-32) mmol/L Glucose (70-99) mg/dl POC Glucose 173 H 169 H 237 H (70-99) Diagnostic Findings no new imaging
[2019-01-15 06:26] LABS: Basophils # (auto) 0.01 K/uL (0-0.2); Basophils % (auto) 0.1 %; Eosinophils # (auto) 0.05 K/uL (0-0.5); Eosinophils % (auto) 0.6 %; Hematocrit (blood only) 37.3 % (42-52); Hemoglobin 13.3 g/dL (14.0-18.0); Immature Granulocytes # (auto) 0.01 K/uL (0.00-0.02); Immature Granulocytes % (auto) 0.1 %; Lymphocytes # (auto) 2.92 K/uL (1.2-3.4); Lymphocytes % (auto) 36.5 %; Mean Corpuscular Hgb Conc 35.7 g/dL (32-36); Mean Corpuscular Volume 87.8 fL (80-100); Neutrophils # (auto) 4.22 K/uL (1.4-6.5); Neutrophils % (auto) 52.7 %; Platelet Count 221 K/uL (130-400); RDW Coefficient of Variation 13.6 % (11.5-14.5); RDW Standard Deviation 43.4 fL (36.4-46.3); Red Blood Count 4.25 M/uL (4.7-6.1); White Blood Count 8.01 K/uL (4.8-10.8)
[2019-01-15] MEDS: METOPROLOL SUCC 25MG EXT REL TAB PO SCH (08:09)
[2019-01-15] MEDS: ATORVASTATIN 40 MG TAB PO SCH (08:09)
[2019-01-15] MEDS: AMLODIPINE BESYLATE 5 MG TAB PO SCH (08:09)
[2019-01-15] MEDS: INSULIN ASPART 100 UNITS/ML 3 ML PEN SC SCH ×4 (08:09→22:02)
[2019-01-15] MEDS ORDERED: CHLORTHALIDONE 25 MG TAB PO SCH (09:00)
--- NOTE | 2019-01-15 15:16 | Neurology Progress Note ---
Date of Service January 15, 2019 Assessment & Plan (1) CVA (cerebral vascular accident): 1. MRI brain-Subacute left occipital infarct showing partial hemorrhagic conversion on MRI. 2. TTE EF 55-60% no ASD 3. known Afib not on anticoag due to fall history 4. CT head in 1 week for resolve of hemorrhage, then restart asa if no further hemorrhage 5. home safety check 6. PT/OT for discharge needs 7. will need either 24/7 supervision in his home or will need facility that can provide supervision needed- [facility] near daughter is being considered 8. stress using walker for ambulation -fall precautions will sign off for now will be available for any questions concerns follow up with neurology in 4-6 weeks Iesha Angelo PAC schedule. Supervising Physician Co-Signing Physician Notes I have seen and discussed above patient with Dr Iesha Black, neurology Pt discussed. See above. 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 He has had intermittent dizziness over several months, which seemed to worse over the last several weeks. He has dizziness with movement and has balance issues at baseline. His daughter is bedside and states he lives alone and wanted him to go to a facility but he refused. She is worried because he has to go upstairs in his home to take a shower. He had a stroke in his left eye, but feels that his vision is worsening. He also has cognitive issues at baseline that makes him somewhat impulsive and does not take caution when he is standing or walking and does not always use his walker at home. His daughter states the dizziness has been worked up at [facility] in [place]. today he got up without his walker and almost fell according to daughter. denies CP, SOB, abdominal pain one sided weakness, numbness tingling, headache, double vision. Physical Exam Physical Exam: gen: alert NAD very [place] lungs course breath sounds CV RRR walks with assistance x 2, shuffles but not spastic gait Results & Data Vital Signs (Past 12 Hours) Vital Signs Temp Pulse Pulse Resp BP Pulse Ox 01/15/19 11:54 36.8 C 85 18 153/91 H 94 01/15/19 08:48 79 01/15/19 07:49 36.4 C L 85 18 157/95 H 95 Laboratory Results Abnormal lab results 01/14/19 01/14/19 01/15/19 Range/Units 16:37 20:36 05:55 RBC 4.25 L (4.7-6.1) M/uL Hgb 13.3 L (14.0-18.0) g/dL Hct 37.3 L (42-52) % [place] # (Auto) 0.80 H (0.11-0.59) K/uL POC Glucose 237 H 210 H (70-99) 01/15/19 01/15/19 Range/Units 07:40 11:29 RBC (4.7-6.1) M/uL Hgb (14.0-18.0) g/dL Hct (42-52) % [place] # (Auto) (0.11-0.59) K/uL POC Glucose 185 H 172 H (70-99) Diagnostic Findings no new imaging
--- NOTE | 2019-01-15 17:31 | Hospitalist Progress Note ---
Date of Service January 15, 2019 Assessment & Plan (1) CVA (cerebral vascular accident): Acute versus subacute CVA History of chronic A. fib, not on anticoagulation secondary - risk of fall, recent intracranial hemorrhage) 6 months back -CT head shows subacute CVA involving the occipital lobe -MRI Brain - subacute left occipital infarct showing partial hemorrhagic conversion -Repeat CT head - subacute left occipital infarct unchanged. Petechial hemorrhagic component by MRI is not seen on CT scan. -Held ASA due to hemorrhagic conversion per MRI read. -Statin dose increased to 40 mg daily for high intensity statin therapy -Work up- CTA Head/ Neck - 60-70% focal stenosis at origin of right internal carotid artery due to calcified plaque; LDL -73, Echo- - EF 55-60%, no shunting, Mild MR -PT/OT ordered- recommend rehab/referral placed, and awaiting insurance Auth -Neurology consulted--> Recommends holding aspirin due to partial hemorrhagic conversion per MRI---> CT to be repeated in 1 week and if no macro hemorrhage can resume ASA. Avoid dual antiplatelet due to risk of bleeding due to prior hx of SAH. (2) Dizziness: Symptom has resolved Secondary to above -PRN Meclizine (3) Hypokalemia: Potassium level within normal limit (4) Stenosis of right internal carotid artery: CTA Head/Neck- Right ICA stenosis 60-70% -Follow up Carotid ultrasound in 6 months. Conveyed to daughter the results and need for follow up (5) Atrial fibrillation: Hx PAF not on anticoagulation secondary to recurrent falls -Continued on beta-trev -Not on anticoagulation due to fall risk and hx of ICH 6 months back (6) Hypertension: Allow permissive hypertension for adequate cerebral perfusion post ischemic CVA Home regimen: Amlodipine 5 mg, Chlorthalidone 25 mg daily -Restart Amlodipine 5 mg daily with holding parameters -Chlorthalidone 25 mg will be restarted from tomorrow (7) Diabetes mellitus type 2 in nonobese: HBA1c: 8.5 on 01/03/19 -Hold metformin: -Insulin sliding scale (8) History of subarachnoid hemorrhage: Hx subarachnoid hemorrhage 07/2018 after fall DNR/DNI as per discussion with pt DISPOSITION Plan to transfer to rehab possible tomorrow Subjective Patient is very hard of hearing, sitting on edge of the bed very pleasant, No dizzy spell, lightheadedness, no headache, denies of any discomfort wants to know when he can go to rehab Physical Exam Constitutional: WD/WN, vitals as above no acute distress Eyes: PERRL, conjunctivae normal, anicteric sclerae ENMT: external ear and nose normal, oropharynx normal Ears: + hearing impairment Respiratory: normal respiratory effort, lungs clear to auscultation Cardiovascular: RRR, no murmur, no edema Gastrointestinal (Abdomen): normal bowel sounds, soft, nontender, no hepatosplenomegaly Musculoskeletal: no cyanosis or clubbing, extremities motor strength 5/5 Skin: no rashes, warm and dry Neurologic: PERRL, EOMI, accommodation nl, no face palsy, no dysarthria Psychiatric: Orientation: alert Baseline dementia, very hard of hearing, oriented to place and person Results & Data Vital Signs (Past 12 Hours) Vital Signs Temp Pulse Pulse Resp BP BP Pulse Ox 01/15/19 15:41 36.3 C L 83 21 155/97 H 95 01/15/19 11:54 36.8 C 85 18 153/91 H 94 01/15/19 08:48 79 01/15/19 07:49 36.4 C L 85 18 157/95 H 95
[2019-01-16] MEDS: ATORVASTATIN 40 MG TAB PO SCH (07:37)
[2019-01-16] MEDS: METOPROLOL SUCC 25MG EXT REL TAB PO SCH (07:37)
[2019-01-16] MEDS: INSULIN ASPART 100 UNITS/ML 3 ML PEN SC SCH ×2 (08:58→12:34)
[2019-01-16] MEDS ORDERED: AMLODIPINE BESYLATE 5 MG TAB PO SCH (09:00)
[2019-01-16] MEDS ORDERED: STROKE PATIENT DISCHARGE STA (11:15)
--- NOTE | 2019-01-16 12:18 | Hospitalist Progress Note ---
Date of Service January 16, 2019 Assessment & Plan (1) CVA (cerebral vascular accident): Admitted with intractable dizzy spell, lightheadedness History of chronic A. fib, not on anticoagulation secondary - risk of fall, recent intracranial hemorrhage) 6 months back -CT head shows subacute CVA involving the occipital lobe -MRI Brain - subacute left occipital infarct showing partial hemorrhagic conversion -Repeat CT head - subacute left occipital infarct unchanged. Petechial hemorrhagic component by MRI is not seen on CT scan. Aspirin kept on hold due to hemorrhagic conversion per MRI read. -Statin dose increased to 40 mg daily for high intensity statin therapy -Stroke work up- CTA Head/ Neck - 60-70% focal stenosis at origin of right internal carotid artery due to calcified plaque; Lipid panel LDL -73-Lipitor dose increased to 40 mg daily (was on 20 mg daily) with goal LDL less than 70 Echo- - EF 55-60%, no shunting, Mild mitral regurgitation Appreciate input from neurology Recommend repeat CT head noncontrast in a week Low-dose aspirin 81 mg daily should be started if no hemorrhagic component noted in noncontrast CT head -dual antiplatelets were not recommended due to risk of bleeding due to prior hx of SAH. -PT/OT evaluation ordered- recommend rehab/referral placed, insurance Auth available for skilled rehab Medically stable to be transferred to SNF today (2) Dizziness: Symptom has resolved Minimum loss of balance noted, will benefit with skilled rehab Possible secondary to subacute occipital CVA -PRN Meclizine (3) Hypokalemia: Potassium level within normal limit (4) Stenosis of right internal carotid artery: CTA Head/Neck- Right ICA stenosis 60-70% -Follow up Carotid ultrasound in 6 months. Conveyed to daughter the results and need for follow up Aspirin 81 mg p.o. daily needs to be started if no hemorrhage noted in CT head without contrast in 1 week Continue Lipitor 40 mg daily (5) Atrial fibrillation: Hx PAF not on anticoagulation secondary to recurrent falls -Continued on beta-trev -Not on anticoagulation due to fall risk and hx of traumatic(secondary to fall ) ICH 6 months back (6) Hypertension: permissive hypertension allowed - 48 to 72 hours for adequate cerebral perfusion post ischemic CVA Home regimen: Amlodipine 5 mg, Chlorthalidone 25 mg daily -We will discontinue chlorthalidone, high risk for dehydration, variable p.o. intake: Advanced age, baseline dementia -Amlodipine dose increased to 10 mg daily (7) Diabetes mellitus type 2 in nonobese: HBA1c: 8.5 on 01/03/19 -Metformin resumed on discharge -Insulin sliding scale (8) History of subarachnoid hemorrhage: Hx subarachnoid hemorrhage 07/2018 after fall DNR/DNI as per discussion with pt DISPOSITION Medically stable to be transferred to rehab today Update given to daughter Jaylin over phone Subjective Had an uneventful night, denies of any discomfort, very hard of hearing, No dizzy spell, no headache Vitals remained stable \Accepted at skilled rehab, medically Stable to be transferred to rehab today Physical Exam Constitutional: WD/WN, vitals as above no acute distress Eyes: PERRL, conjunctivae normal, anicteric sclerae ENMT: external ear and nose normal, oropharynx normal Ears: + hearing i mpairment Neck: trachea midline, no thyromegaly Respiratory: normal respiratory effort, lungs clear to auscultation Cardiovascular: RRR, no murmur, no edema Gastrointestinal (Abdomen): normal bowel sounds, soft, nontender, no hepatosplenomegaly Musculoskeletal: no cyanosis or clubbing, extremities motor strength 5/5 Skin: no rashes, warm and dry Neurologic: PERRL, EOMI, accommodation nl, no face palsy, no dysarthria Psychiatric: Orientation: alert Results & Data Vital Signs (Past 12 Hours) Vital Signs Temp Pulse Resp BP BP Pulse Ox 01/16/19 10:23 36.5 C 72 20 155/97 H 137/74 90 01/16/19 07:56 36.5 C 72 20 137/74 90
--- NOTE | 2019-01-16 12:50 | Discharge Summary ---
Date of Service January 16, 2019 Admission HPI Per Admitting Provider Pt is 88 y/o M with PMH HTN, DM II, dyslipidemia, GERD, h/o subarachnoid hemorrhage 07/2018, paroxysmal atrial fibrillation not on anticoagulation secondary to falls, h/o frequent falls presented to ER with complaint of d izziness. Patient is hard of hearing and has some memory problems, history obtained from patient and assisted by patient's daughter. Reported the patient has been having intermittent dizziness over the past several months seems worse past couple of weeks. States today increased dizziness and had associated nausea and vomiting and some anterior chest pressure. Denies any syncope. Chronic Left eye vision loss, feels right eye vision is worsening over the past several months. Patient reports he believes his falls in the past were secondary to dizziness. Patient has a walker to assist with ambulation however daughter reports he does not always use his walker. Pt was having issues with med compliance, however recently able to have his medications in pill packs and having better med compliance. Reports had morning meds today. Has [facility] following pt. Denies fever/chills, diaphoresis, diarrhea, constipation, HILL, neck pain, SOB, orthopnea, palpitations, cough, sore throat, choking, otalgia, rhinorrhea, abdominal pain, paresthesias, extremity weakness, extremity edema, rashes, urinary symptoms. Principal Diagnosis Acute/subacute occipital stroke/history of paroxysmal A. fib, not a candidate for chronic anticoagulation Discharge Exam Constitutional WD/WN, vitals as above no acute distress Eyes PERRL, conjunctivae normal, anicteric sclerae ENMT external ear and nose normal, oropharynx normal Ears: + hearing impairment Neck trachea midline, no thyromegaly Respiratory normal respiratory effort, lungs clear to auscultation Cardiovascular RRR, no murmur, no edema Gastrointestinal (Abdomen) normal bowel sounds, soft, nontender, no hepatosplenomegaly Musculoskeletal no cyanosis or clubbing, extremities motor strength 5/5 Skin no rashes, warm and dry Neurologic PERRL, EOMI, accommodation nl, no face palsy, no dysarthria Psychiatric Orientation: alert Discharge Data Allergies Allergy/AdvReac Type Severity Reaction Status Date / Time Penicillins Allergy Unknown unknown Verified 08/04/18 11:54 Consultations 01/12/19 17:54 ED Decision to Admit Stat 01/12/19 20:32 Consult Case Management - Discharge Planning Routine Consult Case Management - Discharge Planning Routine Consult Neurology Routine Ordered Studies 01/12/19 16:51 CT head/brain wo con Stat 01/12/19 20:32 CT angio neck with con Urgent 01/12/19 20:38 MR brain wo/w con Stat 01/12/19 20:47 MR angio head wo con Stat 01/12/19 21:27 CT angio head w con Urgent 01/13/19 06:50 CT head/brain wo con Routine Hospital Course (1) CVA (cerebral vascular accident): Admitted with intractable dizzy spell, lightheadedness History of chronic A. fib, not on anticoagulation secondary - risk of fall, recent intracranial hemorrhage) 6 months back -CT head shows subacute CVA involving the occipital lobe -MRI Brain - subacute left occipital infarct showing partial hemorrhagic conve rsion -Repeat CT head - subacute left occipital infarct unchanged. Petechial hemorrhagic component by MRI is not seen on CT scan. Aspirin kept on hold due to hemorrhagic conversion per MRI read. -Statin dose increased to 40 mg daily for high intensity statin therapy -Stroke work up- CTA Head/ Neck - 60-70% focal stenosis at origin of right internal carotid ar mone due to calcified plaque; Lipid panel LDL -73-Lipitor dose increased to 40 mg daily (was on 20 mg daily) with goal LDL less than 70 Echo- - EF 55-60%, no shunting, Mild mitral regurgitation Appreciate input from neurology Recommend repeat CT head noncontrast in a week Low-dose aspirin 81 mg daily should be started if no hemorrhagic component noted in noncontrast CT head -dual antiplatelets were not recommended due to risk of bleeding due to prior hx of SAH. -PT/OT evaluation ordered- recommend rehab/referral placed, insurance Auth available for skilled rehab Medically stable to be transferred to SNF today (2) Dizziness: Symptom has resolved Minimum loss of balance noted, will benefit with skilled rehab Possible secondary to subacute occipital CVA -PRN Meclizine (3) Hypokalemia: Potassium level within normal limit (4) Stenosis of right internal carotid artery: CTA Head/Neck- Right ICA stenosis 60-70% -Follow up Carotid ultrasound in 6 months. Conveyed to daughter the results and need for follow up Aspirin 81 mg p.o. daily needs to be started if no hemorrhage noted in CT head without contrast in 1 week Continue Lipitor 40 mg daily (5) Atrial fibrillation: Hx PAF not on anticoagulation secondary to recurrent falls -Continued on beta-trev -Not on anticoagulation due to fall risk and hx of traumatic(secondary to fall ) ICH 6 months back (6) Hypertension: permissive hypertension allowed - 48 to 72 hours for adequate cerebral perfusion post ischemic CVA Home regimen: Amlodipine 5 mg, Chlorthalidone 25 mg daily -We will discontinue chlorthalidone, high risk for dehydration, variable p.o. intake: Advanced age, baseline dementia -Amlodipine dose increased to 10 mg daily (7) Diabetes mellitus type 2 in nonobese: HBA1c: 8.5 on 01/03/19 -Metformin resumed on discharge -Insulin sliding scale (8) History of subarachnoid hemorrhage: Hx subarachnoid hemorrhage 07/2018 after fall DNR/DNI as per discussion with pt DISPOSITION Medically stable to be transferred to rehab today Update given to robert Mosqueda over phone Total Time Total Time Spent Total Time Spent (In Minutes): Approximately 45 minutes Total Time Includes: Examination of the Patient, Discharge Planning and Medication Reconciliation Discharge Plan Discharge Items Patient Disposition: Transfer [facility] Reason For Visit: STROKE Discharge Diagnosis: Acute/subacute occipital stroke/history of paroxysmal A. fib, not a candidate for chronic anticoagulation Discharge Goals: Decrease discomfort and Therapeutic intervention Activity: As commented below Activity Comment: Continue physical therapy/Occupational Therapy at rehab Non-emergency contact: Primary Care Provider Call non-emergency contact if: you have any medication questions Follow-up/Referrals: Asael Damian MD [Primary Care Provider] - Iesha Angelo PA-C [Physician Ethnic [employer] Teacher] - (Follow-up with neurology Iesha Angelo PA-C in 4 to 6 weeks) Diet: Heart Healthy Addtl Provider Instructions: CT head noncontrast in a week: To assess resolution of partial Hemorrhage around left occipital subacute infarct Aspirin 81 mg p.o. daily can be resumed, if no evidence of hemorrhage noted in noncontrast CT head . Follow-up with neurology in 4 to 6 weeks Iesha Angelo PA-C Carotid ultrasound: In 6 months For evaluation of Approximate 60-70% focal stenosis at the origin of the right internal carotid artery due to the calcified plaque. Risk Factors for Stroke: You can reduce your chances of stroke by working with your medical provider to adopt a healthy lifestyle. Some specific ways to lower your chance of stroke are: * If you are a smoker, now is the time to stop smoking cigarettes * If you are diabetic, improve the control of your blood sugars * Avoid excessive amounts of alcohol * Control high blood pressure * Lose weight if you are overweight * Be sure to lead an active lifestyle * Eat a healthy diet low in salt, cholesterol and fat You should know about other risk factors for stroke that you are unable to control. These include: * Age 55 years or older * Male gender * Certain racial groups: , or / * Family History of Stroke, Mini stroke or Heart Attack * Sickle Cell Disease Follow Up: It is important for you to keep your follow up appointments with your medical provider. Who to Call and When: Medical Emergencies: Call 911 immediately if you experience any of the following warning signs and symptoms of Stroke: * Sudden numbness or weakness of the face, arm or leg, especially on one side of the body * Sudden confusion, trouble speaking or understanding * Sudden trouble seeing in one or both eyes * Sudden trouble walking, dizziness, loss of balance or coordination * Sudden severe headache with no cause Do not delay calling 911 if you experience any warning signs or symptoms of a stroke. Delay in seeking medical attention may affect what treatments can be given to you. . Prescriptions: New atorvastatin 40 mg Tablet 40 mg PO QAM 30 Days Qty: 30 RF: 0 amlodipine [Norvasc] 5 mg Tablet 10 mg PO QAM 30 Days Qty: 60 RF: 0 Continued meclizine 25 mg tablet 25 mg PO TID PRN (Reason: DIZZY) RF: 0 metformin 500 mg tablet 500 mg PO BID RF: 0 metoprolol succinate 25 mg tablet extended release 24 hr 25 mg PO DAILY RF: 0 Discontinued amlodipine 5 mg tablet 5 mg PO DAILY RF: 0 aspirin 325 mg Tablet,Delayed Release (Dr/Ec) 325 mg PO DAILY RF: 0 chlorthalidone 25 mg tablet 25 mg PO DAILY RF: 0 atorvastatin 20 mg tablet 20 mg PO QPM RF: 0 Stand-Alone Forms: [facility] Discharge Orders: Discharge Order (Routine); Ordered 01/16/19 Ordered By: Dayan Bajwa Skilled Items Patient informed of condition?: Yes DNR: Yes Discharge Level of Care: Skilled Communicable Disease: No Discharge Prognosis: Stable Admission Data Admit Date/Time: 01/12/19 18:38 Attending Provider: Dayan Bajwa Admit Provider: Dayan Bajwa Primary Care Provider: Asael Damian Other Providers: Radha Baig ; Dayan Bajwa ; Iesha Angelo ; Montana Durant ; Iesha Black ; Milton Murphy Service: Telemetry Medical Other Interventions: Discharge Summary Assessment (RN) Last Done: 01/16/19 10:23
--- NOTE | 2019-01-16 15:26 | CT Scan Report ---
HEAD & NECK CTA HISTORY: Dizziness. Abnormal head CT. Stroke symptoms. TECHNIQUE: Multiaxial CT images of the head were performed following the intravenous administration o f contrast to evaluate the major cerebral vessels. Multiaxial CT images of the neck were also perform ed following the intravenous administration of contrast to evaluate the major cervical vessels. Maxim um intensity projection images were also obtained. A dose lowering technique was utilized adhering to the principles of ALARA. COMPARISON: Head CT 01/12/2019. FINDINGS: Mild calcified plaque within the bilateral carotid siphons. The major dural venous sinuses are patent . Visualized intracranial internal carotid arteries, distal vertebral arteries, and basilar artery ar e widely patent. There is no significant stenosis, occlusion, or aneurysm seen within the bilateral A Martina, MCAs, or commercial cleaner. The aortic arch and proximal great vessels are widely patent. The bilateral common carotid and vert ebral arteries are widely patent. Mild calcified plaque within the left carotid bifurcation. The left internal carotid artery is widely patent. Extensive calcified plaque within the right carotid bifurc ation. This results in approximately 60-70% focal stenosis at the origin of the right internal caroti d artery. This is best seen on image 195. The remaining right internal carotid artery is widely paten t. IMPRESSION: 1. No significant stenosis, occlusion, or aneurysm within the minto of [place]. 2. No significant stenosis, occlusion, or dissection identified within the left carotid or vertebral arteries. 3. Approximate 60-70% focal stenosis at the origin of the right internal carotid artery due to the ca lcified plaque. Electronically signed by: Ken Villela M.D. 01/12/2019 10:40 PM
== END 2019-01-16 16:00 | DRG 64 ==
LOC: ED 16:17 → 2N 18:38 → SUATTDRO 18:38 → 2N 19:54